=== PATIENT | female | born 1955 | race Caucasian/White ===

== ENCOUNTER → 2019-07-03 18:15 | Outpatient (BNVA) | payer MEDICARE, SELFPAY | PROVIDERS: Family Provider Family Medicine; PCP Family Medicine; Visit Provider Family Medicine | DX: E11.42 Type 2 diabetes mellitus with diabetic polyneuropathy (principal); E03.9 Hypothyroidism, unspecified; I11.0 Hypertensive heart disease with heart failure; I50.9 Heart failure, unspecified; I25.10 Atherosclerotic heart disease of native coronary artery without angina pectoris; M62.838 Other muscle spasm; G89.4 Chronic pain syndrome; G47.00 Insomnia, unspecified; M65.4 Radial styloid tenosynovitis [de Quervain]; G62.9 Polyneuropathy, unspecified; Z79.4 Long term (current) use of insulin; F41.1 Generalized anxiety disorder; K83.8 Other specified diseases of biliary tract | CPT/HCPCS: 80053; 80061; 83036; 83721; 84439; 84443; 84481 ==

== ENCOUNTER → 2019-10-23 09:59 | Outpatient (BNVA) | payer MEDICARE, SELFPAY | PROVIDERS: Family Provider Family Medicine; PCP Family Medicine; Visit Provider Family Medicine | DX: E78.2 Mixed hyperlipidemia (principal); E83.52 Hypercalcemia; E11.42 Type 2 diabetes mellitus with diabetic polyneuropathy; E11.9 Type 2 diabetes mellitus without complications; Z79.4 Long term (current) use of insulin; G89.4 Chronic pain syndrome; F41.1 Generalized anxiety disorder; I10 Essential (primary) hypertension; N95.1 Menopausal and female climacteric states | CPT/HCPCS: 80053; 80061; 83036 ==

== ENCOUNTER → 2020-01-29 08:47 | Outpatient (BNVA) | payer MEDICARE, SELFPAY | PROVIDERS: Family Provider Family Medicine; PCP Family Medicine; Visit Provider Family Medicine | DX: E78.2 Mixed hyperlipidemia (principal); E83.52 Hypercalcemia; E11.42 Type 2 diabetes mellitus with diabetic polyneuropathy; Z79.4 Long term (current) use of insulin; G89.4 Chronic pain syndrome; F41.1 Generalized anxiety disorder; I10 Essential (primary) hypertension; N95.1 Menopausal and female climacteric states; E03.9 Hypothyroidism, unspecified | CPT/HCPCS: 80048; 83036; 84443 ==

== ENCOUNTER → 2020-07-29 00:01 | Outpatient (BNVA) | payer MEDICARE, SELFPAY | PROVIDERS: Family Provider Family Medicine; PCP Family Medicine; Visit Provider Family Medicine | DX: G62.9 Polyneuropathy, unspecified (principal); E11.9 Type 2 diabetes mellitus without complications; I10 Essential (primary) hypertension; E78.2 Mixed hyperlipidemia; J30.9 Allergic rhinitis, unspecified; G89.4 Chronic pain syndrome; F41.1 Generalized anxiety disorder; I50.9 Heart failure, unspecified; E03.9 Hypothyroidism, unspecified; K21.9 Gastro-esophageal reflux disease without esophagitis; M62.838 Other muscle spasm; E11.42 Type 2 diabetes mellitus with diabetic polyneuropathy; Z79.4 Long term (current) use of insulin; J41.0 Simple chronic bronchitis; J30.1 Allergic rhinitis due to pollen; Z71.89 Other specified counseling | CPT/HCPCS: 80053; 83036; 83735; 84443 ==

== ENCOUNTER → 2020-09-16 14:00 | Outpatient (BNVA) | payer MEDICARE, SELFPAY | PROVIDERS: Family Provider Family Medicine; PCP Family Medicine; Referring Provider Family Medicine; Visit Provider Family Medicine | DX: E03.9 Hypothyroidism, unspecified (principal) | CPT/HCPCS: 84443 ==

== ENCOUNTER 2020-10-07 09:37 | Outpatient (RCR) | payer MEDICARE, SELFPAY | END 2020-10-18 23:59 | disposition home or self-care (01) | LOC: SPT 09:37 | PROVIDERS: Family Provider Family Medicine; PCP Family Medicine; Referring Provider Family Medicine; Visit Provider Family Medicine | DX: H81.10 Benign paroxysmal vertigo, unspecified ear (principal) | CPT/HCPCS: 95992; 97162 ==

== ENCOUNTER → 2020-10-21 10:07 | Outpatient (BNVA) | payer MEDICARE, SELFPAY | PROVIDERS: Family Provider Family Medicine; PCP Family Medicine; Visit Provider Family Medicine | DX: E03.9 Hypothyroidism, unspecified (principal); E11.42 Type 2 diabetes mellitus with diabetic polyneuropathy; Z79.4 Long term (current) use of insulin; I11.0 Hypertensive heart disease with heart failure; H81.10 Benign paroxysmal vertigo, unspecified ear; F41.1 Generalized anxiety disorder; G89.4 Chronic pain syndrome; I50.9 Heart failure, unspecified; J44.0 Chronic obstructive pulmonary disease with (acute) lower respiratory infection | CPT/HCPCS: 83036; 84439; 84443; 84481 ==

== ENCOUNTER → 2021-01-20 10:17 | Outpatient (BNVA) | payer MEDICARE, SELFPAY | PROVIDERS: Family Provider Family Medicine; PCP Family Medicine; Visit Provider Family Medicine | DX: I10 Essential (primary) hypertension (principal); K21.9 Gastro-esophageal reflux disease without esophagitis; E03.9 Hypothyroidism, unspecified; I50.9 Heart failure, unspecified; G89.4 Chronic pain syndrome; F41.1 Generalized anxiety disorder; M62.838 Other muscle spasm; M17.0 Bilateral primary osteoarthritis of knee; E11.42 Type 2 diabetes mellitus with diabetic polyneuropathy; Z79.4 Long term (current) use of insulin; J41.0 Simple chronic bronchitis; I25.10 Atherosclerotic heart disease of native coronary artery without angina pectoris | CPT/HCPCS: 80053; 80061; 83036; 84443; 85025 ==

== ENCOUNTER → 2021-04-21 10:45 | Outpatient (BNVA) | payer MEDICARE, SELFPAY | PROVIDERS: Family Provider Family Medicine; PCP Family Medicine; Visit Provider Family Medicine | DX: E11.42 Type 2 diabetes mellitus with diabetic polyneuropathy (principal); D72.829 Elevated white blood cell count, unspecified; D72.825 Bandemia; G89.4 Chronic pain syndrome; Z79.4 Long term (current) use of insulin | CPT/HCPCS: 83036; 85007; 85027 ==

== ENCOUNTER 2021-06-16 11:25 | Outpatient (CLI) | payer MEDICARE, SELFPAY ==
[2021-06-16 12:15] LABS: Basophils # 0.1 10^3/uL (0.0-0.1); Basophils % 0.9 %; Eosinophils # 0.4 10^3/uL (0.0-0.8); Eosinophils % 2.6 %; Hematocrit 48.6 % (37.0-47.0); Hemoglobin 16.1 g/dL (11.5-15.3); Lymphocytes # 4.4 10^3/uL (0.8-4.8); Lymphocytes % 28.7 %; Mean Corpuscular HGB Conc 33.1 g/dL (30.0-36.0); Mean Corpuscular Hemoglobin 29.9 pg (28.0-34.0); Mean Corpuscular Volume 90.2 fl (81-99); Mean Platelet Volume 9.8 fL (7.4-10.4); Monocytes # 1.2 10^3/uL (0.2-0.9); Monocytes % 8.2 %; Neutrophils # 9.01 10^3/uL (1.8-7.7); Neutrophils % 59.2 %; Nucleated Red Blood Cells % 0 %; Platelet Count 282 10^3/cmm (130-400); Red Blood Count 5.39 10^6/uL (4.1-5.3); White Blood Count 15.2 10^3/uL (4.0-10.0)
--- NOTE | 2021-06-16 15:07 | ONC FU_ITS ---
Dr. Paniagua follow up note Patient: Dee Barros Unit #: [id number]: 1955 Dicatated By: Cesar Paniagua M.D.Date of Visit:Jun 16, 2021 Onc Med Follow-up/Prog Note History of Present Illness: Ms. Dee Barros, is a 65-year-old female with a history of mild leukocytosis, she used to use steroid inhalers for COPD on regular basis and she was told it could be due to that and she stopped using Symbicort on regular basis and changed to as needed. and now during her routine follow-up on April 21, 2021 she underwent follow-up lab work-up and her CBC showed white blood count 13.3 hemoglobin 15.2 hematocrit 48.9 platelets 312,000 with mild neutrophilia, Patient has history of COPD, and still smoke about pack a day for the last 45 years, as per patient in the past, sleep study was recommended to rule out possibility of sleep apnea but she did not follow through. Patient denies any sinus related symptoms, denies any dysuria or hematuria, denies any fever chills, denies any sore throat, denies any hemoptysis or hematemesis, denies any recurrent fever, denies any night sweats, denies any weight loss, denies any steroids except Symbicort inhaler about 3 weeks ago. Denies any headaches blurred vision double vision, denies any confusion, denies any chest pain or fullness. Medications: Albuterol Sulfate ((2.5 mg/3ml) 0.083%) Nebulization solution Inhalation q 6 hours, Albuterol Sulfate HFA 2 Puff(s) (of 108 (90 base) mcg/act) Aerosol, solution Inhalation q 6 hours PRN, Aspirin 1 Tablet (of 81 mg) Tablet, enteric coated Oral daily, Atorvastatin Calcium 1 Tablet Oral at bedtime, B-Complex/B-12 (1200 mcg) Liquid Sublingual daily PRN, Cetirizine HCl 1 Tablet (of 10 mg) Oral daily, Cholecalciferol 1 Capsule Oral daily, cloNIDine HCl 1 Tablet Oral b.i.d., Cyclobenzaprine HCl 1 Tablet (of 10 mg) Oral daily, DULoxetine HCl 1 Capsule (of 40 mg) Capsule Delayed Release Particles Oral daily, Gabapentin 1 Capsule (of 400 mg) Oral b.i.d., Insulin Detemir 65 Unit(s) (of 100 Units/mL) Subcutaneous daily, Levothyroxine Sodium 1 Tablet Oral daily, Lisinopril-hydroCHLOROthiazide 1 Tablet (of 20-12.5 mg) Oral daily, Melatonin 1 Tablet (of 5 mg) Oral daily PRN, Metoprolol Tartrate 1 Tablet Oral b.i.d., Nitroglycerin 1 Tablet (of 0.4 mg) Tablet, sublingual Sublingual q 5 minutes PRN, Omeprazole 1 Capsule (of 40 mg) Capsule Delayed Release Oral b.i.d. Allergies: Codeine Sulfate and Pregabalin. Review of Systems: Review of Systems is not available for this patient. Vital Signs: Performed on Jun 16, 2021 14:06 Height - 62 in Weight - 190.6 lbs (HIGH) BSA - 1.87 sq.m BMI - 34.86 (HIGH) Temperature - 96.4 F (LOW) Pulse - 91 /min Respiration - 18 /min BP - 143/81 mm(hg) (HIGH) O2 Sat - 94 % (LOW) Pain - 9 Fatigue - 7 Performance Status: 0 - Fully active, able to carry on all predisease activities without restrictions. (ECOG) Physical Examination: ENMT - No mouth sores, no thrush, no jaundice, Respiratory - Poor air entry, mild wheezing, Cardiovascular - Regular rate and rhythm of heart, Abdomen - Soft, bowel sounds present, Extremities - No visible edema. Lab/Imaging: Most recent lab results are not available for this patient. Impression: Isolated, mild leukocytosis/neutrophilia with normal hemoglobin and platelets per labs done on April 21, 2021, which showed white blood count 13.3 hemoglobin 15.2 hematocrit 48.9 platelets 312,000 COPD, on Symbicort inhaler, now on as-needed basis Arthritis Stress/anxiety Hypertension Hypothyroidism Plan: Discussed with patient regarding her labs from today showed white blood count 15.2 hemoglobin 16.1 hematocrit 48.6 platelets 282,000, neutrophils 59.2%, lymphocyte 28.7%, monocyte 8.2% Clinically, patient doing well with no new signs suggestive of acute infection or inflammation, her repeat CBC done today shows persistent isolated mild leukocytosis/neutrophilia and mildly elevated hemoglobin/hematocrit. Etiology of her isolated leukocytosis could be multifactorial including chronic smoking or smoking related upper respiratory inflammation, other possibility could be underlying sleep apnea, or chronic inflammation or myeloproliferative disorder. Patient was advised to quit smoking, was offered any assistance she may need and also advised to not to use Symbicort until her next visit in a month with CBC, in the meantime we will consider whole blood flow cytometry As far as mild polycythemia is concerned, probably reactive, chronic smoking, underlying COPD and possibility of sleep apnea, will suggest PMD to consider sleep study, if sleep apnea is confirmed, she may benefit from CPAP machine. That may help her leukocytosis too . She will return to clinic in 1 month with CBC and with whole blood flow cytometry Signed By: Cesar Paniagua M.D. <<Signature on File>>
[2021-06-24 07:25] LABS: Miscellaneous Test See Scanned Lab Rpt
== END 2021-06-16 11:26 | disposition home or self-care (01) ==
LOC: ONCMED 11:31
PROVIDERS: PCP Family Medicine; Visit Provider Internal Medicine Hematology & Oncology
DX: J44.9 Chronic obstructive pulmonary disease, unspecified (principal); M19.90 Unspecified osteoarthritis, unspecified site; F41.9 Anxiety disorder, unspecified; I10 Essential (primary) hypertension; E05.90 Thyrotoxicosis, unspecified without thyrotoxic crisis or storm; F17.210 Nicotine dependence, cigarettes, uncomplicated
CPT/HCPCS: 36415; 85025; 88184; 88185; 99204

== ENCOUNTER 2021-07-28 12:24 | Outpatient (CLI) | payer MEDICARE, SELFPAY ==
[2021-07-28 12:49] LABS: Basophils # 0.1 10^3/uL (0.0-0.1); Basophils % 0.6 %; Eosinophils # 0.2 10^3/uL (0.0-0.8); Hematocrit 47.3 % (37.0-47.0); Hemoglobin 15.2 g/dL (11.5-15.3); Mean Corpuscular HGB Conc 32.1 g/dL (30.0-36.0); Mean Corpuscular Hemoglobin 29.4 pg (28.0-34.0); Mean Corpuscular Volume 91.5 fl (81-99); Mean Platelet Volume 9.9 fL (7.4-10.4); Monocytes # 1.2 10^3/uL (0.2-0.9); Monocytes % 9.9 %; Neutrophils # 6.13 10^3/uL (1.8-7.7); Neutrophils % 52.8 %; Nucleated Red Blood Cells % 0 %; Platelet Count 257 10^3/cmm (130-400); Red Blood Count 5.17 10^6/uL (4.1-5.3); Red Cell Distribution Width 13.2 % (12.1-15.1); White Blood Count 11.6 10^3/uL (4.0-10.0)
--- NOTE | 2021-07-28 17:01 | ONC FU_ITS ---
Dr. Paniagua follow up note Patient: Dee Barros Unit #: [id number]: 1955 Dicatated By: Cesar Paniagua M.D.Date of Visit:Jul 28, 2021 Onc Med Follow-up/Prog Note History of Present Illness: Ms. Dee Barros, is a 65-year-old female with a history of mild leukocytosis, she used to use steroid inhalers for COPD on regular basis and she was told it could be due to that and she stopped using Symbicort on regular basis and changed to as needed. and now during her routine follow-up on April 21, 2021 she underwent follow-up lab work-up and her CBC showed white blood count 13.3 hemoglobin 15.2 hematocrit 48.9 platelets 312,000 with mild neutrophilia, Patient has history of COPD, and still smoke about pack a day for the last 45 years, as per patient in the past, sleep study was recommended to rule out possibility of sleep apnea but she did not follow through. Patient denies any sinus related symptoms, denies any dysuria or hematuria, denies any fever chills, denies any sore throat, denies any hemoptysis or hematemesis, denies any recurrent fever, denies any night sweats, denies any weight loss, denies any steroids except Symbicort inhaler about 3 weeks ago. Denies any headaches blurred vision double vision, denies any confusion, denies any chest pain or fullness. Whole blood flow cytometric done on June 16, 2021 showed no aberrant myeloid or lymphoid population detected Came for follow-up, denies any specific complaints, no fever chills, no nausea or vomiting, no diarrhea or constipation, no melena or hematochezia, no night sweats, no dysuria or hematuria, no sore throat, no sinus related symptoms. Patient still smoke about a pack a day. Medications: Albuterol Sulfate ((2.5 mg/3ml) 0.083%) Nebulization solution Inhalation q 6 hours, Albuterol Sulfate HFA 2 Puff(s) (of 108 (90 base) mcg/act) Aerosol, solution Inhalation q 6 hours PRN, Aspirin 1 Tablet (of 81 mg) Tablet, enteric coated Oral daily, Atorvastatin Calcium 1 Tablet Oral at bedtime, B-Complex/B-12 (1200 mcg) Liquid Sublingual daily PRN, Cetirizine HCl 1 Tablet (of 10 mg) Oral daily, Cholecalciferol 1 Capsule Oral daily, cloNIDine HCl 1 Tablet Oral b.i.d., Cyclobenzaprine HCl 1 Tablet (of 10 mg) Oral daily, DULoxetine HCl 1 Capsule (of 40 mg) Capsule Delayed Release Particles Oral daily, Gabapentin 1 Capsule (of 400 mg) Oral b.i.d., Insulin Detemir 65 Unit(s) (of 100 Units/mL) Subcutaneous daily, Levothyroxine Sodium 1 Tablet Oral daily, Lisinopril-hydroCHLOROthiazide 1 Tablet (of 20-12.5 mg) Oral daily, Melatonin 1 Tablet (of 5 mg) Oral daily PRN, Metoprolol Tartrate 1 Tablet Oral b.i.d., Nitroglycerin 1 Tablet (of 0.4 mg) Tablet, sublingual Sublingual q 5 minutes PRN, Omeprazole 1 Capsule (of 40 mg) Capsule Delayed Release Oral b.i.d. Allergies: Codeine Sulfate and Pregabalin. Review of Systems: Review of Systems is not available for this patient. Vital Signs: Performed on Jul 28, 2021 15:14 Height - 62.00 in Weight - 186.0 lbs (LOW) BSA - 1.85 sq.m BMI - 34.02 (HIGH) Temperature - 98.1 F (LOW) Pulse - 87 /min Respiration - 16 /min BP - 144/85 mm(hg) (HIGH) O2 Sat - 95 % (LOW) Pain - 7 Fatigue - 9 Performance Status: 1 - No physically strenuous activity, but ambulatory and able to carry out light or sedentary work (e.g. office work, light house work). (ECOG) Physical Examination: ENMT - No mouth sores, no thrush, no jaundice, Respiratory - Poor air entry otherwise clear, Cardiovascular - Regular rate and rhythm of heart, Abdomen - Soft, bowel sounds present, Extremities - No visible edema. Lab/Imaging: Most recent lab results are not available for this patient. Impression: Isolated, mild leukocytosis/neutrophilia with normal hemoglobin and platelets per labs done on April 21, 2021, which showed white blood count 13.3 hemoglobin 15.2 hematocrit 48.9 platelets 312,000, Etiology most likely reactive as whole blood flow cytometry done on June 16, 2021 showed no aberrant myeloid or lymphoid population detected so fluctuating isolated mild leukocytosis could be due to chronic smoking, underlying subclinical bronchitis, underlying sleep apnea, COPD, early myeloproliferative disorder but less likely. COPD, on Symbicort inhaler, now on as-needed basis Arthritis Stress/anxiety Hypertension Hypothyroidism Plan: Discussed with patient regarding her labs white blood count 11.6 thousand compared to 15.2 thousand on June 16, 2021, hemoglobin 15.2 g hematocrit 47.3 platelets 267,000 Whole blood flow cytometry done on June 16, 2021 showed no aberrant lymphoid or myeloid cells seen Clinically, patient doing well with no new signs symptoms her follow-up CBC shows improvement in her white blood count and the whole blood flow cytometry showed no aberrant lymphoid or myeloid cell, her isolated leukocytosis could be reactive due to her chronic smoking, smoking related complication like chronic bronchitis and underlying COPD or sleep apnea. Underlying early myeloproliferative disorder cannot be ruled out entirely but will monitor she will return to clinic in 3 months with CBC. Patient was advised to quit smoking was offered any assistance she may need. Signed By: Cesar Paniagua M.D. <<Signature on File>>
== END 2021-07-28 12:25 | disposition home or self-care (01) ==
LOC: ONCMED 12:27
PROVIDERS: PCP Family Medicine; Visit Provider Internal Medicine Hematology & Oncology
DX: D72.829 Elevated white blood cell count, unspecified (principal); D72.0 Genetic anomalies of leukocytes; J44.9 Chronic obstructive pulmonary disease, unspecified; M19.90 Unspecified osteoarthritis, unspecified site; F41.9 Anxiety disorder, unspecified; I10 Essential (primary) hypertension; E03.9 Hypothyroidism, unspecified; F17.210 Nicotine dependence, cigarettes, uncomplicated; Z71.6 Tobacco abuse counseling
CPT/HCPCS: 36415; 85025; 99214

== ENCOUNTER → 2021-08-04 15:26 | Outpatient (BNVA) | payer MEDICARE, SELFPAY | PROVIDERS: PCP Family Medicine; Visit Provider Family Medicine | DX: E03.9 Hypothyroidism, unspecified (principal); E78.2 Mixed hyperlipidemia; E11.42 Type 2 diabetes mellitus with diabetic polyneuropathy; Z79.4 Long term (current) use of insulin; I10 Essential (primary) hypertension | CPT/HCPCS: 80053; 80061; 83036; 83721; 84443 ==

== ENCOUNTER → 2021-11-03 10:33 | Outpatient (BNVA) | payer MEDICARE, SELFPAY | PROVIDERS: PCP Family Medicine; Visit Provider Family Medicine | DX: E11.42 Type 2 diabetes mellitus with diabetic polyneuropathy (principal); Z79.4 Long term (current) use of insulin; E03.9 Hypothyroidism, unspecified; I10 Essential (primary) hypertension; E78.2 Mixed hyperlipidemia | CPT/HCPCS: 80048; 83036; 84439; 84443; 84481 ==

== ENCOUNTER → 2022-01-28 11:02 | Outpatient (BNVA) | payer MEDICARE, SELFPAY | PROVIDERS: PCP Family Medicine; Visit Provider Family Medicine | DX: M62.838 Other muscle spasm (principal); E11.9 Type 2 diabetes mellitus without complications; E03.9 Hypothyroidism, unspecified; E11.42 Type 2 diabetes mellitus with diabetic polyneuropathy; Z79.4 Long term (current) use of insulin; I10 Essential (primary) hypertension; R53.83 Other fatigue; Z23 Encounter for immunization | CPT/HCPCS: 80048; 83036; 83540; 84443; 85025 ==

== ENCOUNTER → 2022-03-31 09:08 | Outpatient (BNVA) | payer MEDICARE, SELFPAY | PROVIDERS: PCP Family Medicine; Visit Provider Family Medicine | DX: G89.4 Chronic pain syndrome (principal); F41.1 Generalized anxiety disorder; G62.9 Polyneuropathy, unspecified; K21.9 Gastro-esophageal reflux disease without esophagitis; I10 Essential (primary) hypertension; E03.9 Hypothyroidism, unspecified; I50.9 Heart failure, unspecified; J30.9 Allergic rhinitis, unspecified; J44.9 Chronic obstructive pulmonary disease, unspecified; E78.2 Mixed hyperlipidemia; J41.0 Simple chronic bronchitis; M79.2 Neuralgia and neuritis, unspecified; Z23 Encounter for immunization | CPT/HCPCS: 72040; 73030 ==

== ENCOUNTER → 2022-04-15 09:01 | Outpatient (BNVA) | payer MEDICARE, SELFPAY | PROVIDERS: PCP Family Medicine; Visit Provider Family Medicine | DX: M54.40 Lumbago with sciatica, unspecified side (principal); M25.551 Pain in right hip; M25.552 Pain in left hip; M17.0 Bilateral primary osteoarthritis of knee; G89.4 Chronic pain syndrome; I50.9 Heart failure, unspecified; Z74.09 Other reduced mobility; Z78.9 Other specified health status | CPT/HCPCS: 72100; 73523 ==

== ENCOUNTER → 2022-04-20 13:13 | Outpatient (BNVA) | payer MEDICARE, SELFPAY | PROVIDERS: PCP Family Medicine; Visit Provider Surgery | DX: K21.9 Gastro-esophageal reflux disease without esophagitis (principal); K62.5 Hemorrhage of anus and rectum | CPT/HCPCS: 99203 ==

== ENCOUNTER → 2022-04-27 09:25 | Outpatient (BNVA) | payer MEDICARE, SELFPAY | PROVIDERS: PCP Family Medicine; Visit Provider Family Medicine | DX: E11.42 Type 2 diabetes mellitus with diabetic polyneuropathy (principal); Z79.4 Long term (current) use of insulin; I10 Essential (primary) hypertension; H91.93 Unspecified hearing loss, bilateral; M54.40 Lumbago with sciatica, unspecified side; G89.4 Chronic pain syndrome; K62.5 Hemorrhage of anus and rectum; K21.9 Gastro-esophageal reflux disease without esophagitis | CPT/HCPCS: 80053; 83036; 85025 ==

== ENCOUNTER → 2022-05-18 09:46 | Outpatient (BNVA) | payer MEDICARE, SELFPAY | PROVIDERS: PCP Family Medicine; Visit Provider Anesthesiology Pain Medicine | DX: M47.816 Spondylosis without myelopathy or radiculopathy, lumbar region (principal); M51.16 Intervertebral disc disorders with radiculopathy, lumbar region; M79.604 Pain in right leg; M79.605 Pain in left leg; F17.210 Nicotine dependence, cigarettes, uncomplicated | CPT/HCPCS: 99204 ==

== ENCOUNTER 2022-06-19 08:49 | Day surgery (SDC) | payer MEDICARE, SELFPAY ==
[2022-06-16 12:22] VITALS: BMI 33.3
[2022-06-19 09:14] VITALS: BP 144/99; PULSE 65; RESP 20; TEMP 36.2; O2SAT 93
[2022-06-19] MEDS: sodium chloride 0.9% 1,000 ML 30 ML IV (09:19)
[2022-06-19 09:24] LABS: Glucose Point of Care 170 mg/dL (70-110)
--- NOTE | 2022-06-19 09:46 | ANES.PREANE2 ---
Pre-Anesthetic Assessment Height/Weight: Height 1.57 m Weight 82.554 kg Temp Pulse Resp BP Pulse Ox O2 Del Method 97.2 F L 65 20 H 144/99 93 06/19/22 09:14 06/19/22 09:14 06/19/22 09:14 06/19/22 09:14 06/19/22 09:14 06/19/22 09:14 Preop Diagnosis: blood per rectum Operation Date: 06/19/22 10:00 Proposed Procedures p [id number] egd, [id number] colon K62.5,K21.9(Not Applicable) - Chapin Blake DO s Colonoscopy(Not Applicable) - Chapin Blake DO Familial anesthetic complications: hard to wake up Was Beta Shreyas taken within 24 hours: Yes Was Clonidine taken within 24 hours: N/A Last intake: Intake Last Liquid Date 06/18/22 Last Liquid Time 22:00 Last Solid Date 06/17/22 Last Solid Time 19:30 Social Tobacco and No alcohol 1 pack(s) per day Exam alert, oriented x 3, clear to auscultation bilaterally and regular rate & rhythm Airway Submandibular: within normal limits Cervical ROM: within normal limits Mallampati: Class I Dentition: false Pulmonary Asthma, Chronic Obstructive Pulmonary Disease, Cough and Sleep Apnea CV/HEM Hypertension None reported Hepatic None reported GI Gastroesophageal Reflux Disease Metabolic Diabetes Mellitus, Hyperlipidemia and Thyroid Disease Musc/skel Lower Back Pain, Osteoarthritis/DJD and Weakness (Right sided) Neuropsych Anxiety, Bipolar, Depression and Headache Anesthetic Plan ASA status: 3 Anesthesia: MAC Risk of > 500 ml blood loss (7ml/kg in children): No Medications/Allergies Home Medications Medication Instructions Recorded Confirmed Last Taken Type albuterol sulfate 2.5 mg/3 mL 2.5 mg inhalation Q6H PRN 06/23/19 06/16/22 06/13/22 History (0.083 %) solution for nebulization Shortness Of Breath aspirin 81 mg tablet,delayed 81 mg PO DAILY 06/23/19 06/16/22 06/16/22 History release cholecalciferol (vitamin D3) 25 125 mcg PO DIRECTED 06/23/19 06/16/22 06/18/22 History mcg (1,000 unit) tablet melatonin 5 mg capsule 5 mg PO DAILY PRN Sleep 06/23/19 06/16/22 06/18/22 History nitroglycerin 0.4 mg sublingual 0.4 mg sublingual Q5M PRN Chest 06/23/19 06/16/22 Unknown History tablet (Nitrostat) Pain vitamin B complex-vitamin B12 1 drp sublingual DAILY PRN 06/23/19 06/16/22 Unknown History 1,200 mcg/mL sublingual drops exhaustion krill oil 500 mg capsule 500 mg PO DAILY 11/03/21 06/16/22 06/16/22 History tizanidine 4 mg tablet 4 mg PO BID muscle spasticity 90 01/28/22 06/16/22 06/18/22 Rx days #180 tabs cetirizine 10 mg capsule 10 mg PO DAILY 90 days #90 caps 03/31/22 06/16/22 06/18/22 Rx duloxetine 20 mg capsule,delayed 40 mg PO DAILY 90 days #180 caps 03/31/22 06/16/22 06/19/22 05:30 Rx release insulin detemir U-100 100 unit/mL 75 unit (0.75 mL) SUBCUT DAILY 90 04/27/22 06/16/22 06/17/22 Rx (3 mL) subcutaneous pen (Levemir days #69 mL FlexTouch U-100 Insulin) Marijuana 05/18/22 05/18/22 Unknown History pen needle, diabetic 31 gauge x #100 ea 05/20/22 Unknown Rx 5/16 (Comfort EZ Pen [place]) blood sugar diagnostic (OneTouch #100 ea 05/27/22 Unknown Rx Verio test strips) albuterol sulfate 90 mcg/actuation 2 puff inhalation Q6H PRN 06/16/22 06/16/22 06/19/22 06:00 History aerosol inhaler Shortness Of Breath atorvastatin 20 mg tablet 20 mg PO QPM 06/16/22 06/16/22 06/18/22 History budesonide-formoterol HFA 160 2 puff inhalation BID 06/16/22 06/16/22 06/14/22 History mcg-4.5 mcg/actuation aerosol inhaler (Symbicort) clonidine HCl 0.2 mg tablet 0.2 mg PO BID 06/16/22 06/16/22 06/18/22 History furosemide 20 mg tablet 20 mg PO QAM 12/27/22 12/27/22 12/28/22 History gabapentin 400 mg capsule 400 mg PO BID 06/16/22 06/16/22 06/17/22 History levothyroxine 150 mcg tablet 150 mcg PO DAILY 06/16/22 06/16/22 06/19/22 05:30 History lisinopril 20 1 tab PO DAILY 06/16/22 06/16/22 06/18/22 History mg-hydrochlorothiazide 25 mg tablet metoprolol tartrate 25 mg tablet 25 mg PO BID 06/16/22 06/16/22 06/19/22 05:30 History Tylenol 1,000 mg PO TID 06/19/22 06/19/22 06/19/22 05:30 History Allergies Allergy/AdvReac Type Severity Reaction Status Date / Time codeine Allergy Unknown Verified 06/16/22 12:13 pregabalin [From Lyrica] Allergy Unknown Verified 06/16/22 12:13 Current Medications Generic Name Dose Route Start Last Admin Trade Name Freq PRN Reason Stop Dose Admin Sodium Chloride 1,000 mls @ 30 mls/hr 06/19/22 09:00 06/19/22 09:19 Sodium Chloride 0.9% IV 06/20/22 08:59 30 mls/hr .Q24H JONAH Administration PFSH Anesthesia Medical History Allergic rhinitis Benign essential hypertension CHF (congestive heart failure) Chronic pain syndrome COPD (chronic obstructive pulmonary disease) Coronary artery disease Diabetes Elevated white blood cell count, unspecified PILAR (generalized anxiety disorder) GERD (gastroesophageal reflux disease) Hyperlipidemia Hypothyroidism Insomnia Intrahepatic bile duct dilation Muscle spasm Neuropathy Other elevated white blood cell count Primary osteoarthritis of both knees Surgical History History of cholecystectomy History of hysterectomy History of tubal ligation Family History Father Hypertension Myocardial infarction Cancer Colon Brother Hypertension Diabetes Mother Hypertension Myocardial infarction Cancer Breast Sister Hypertension Brother Myocardial infarction Cancer Colon Family/Other Cancer Aunt 2x Breast Other Stroke Social History Smoking and tobacco status: current every day smoker cigarettes [ Other cigarette details: 4 per week] Quit status (tobacco): not considering quitting Second hand smoke exposure: Yes Smoking risk assessment/counseling performed?: No Alcohol intake: never Desire information about alcohol rehabilitation?: No Counseling given: No Desire information about substance/drug rehabilitation?: No Counseling given: No Sexually active: No Current gender identity: Female Female Reproductive History Spontaneous abortions: No Data Anesthesia Cardiac Studies: No Data to Display
--- NOTE | 2022-06-19 09:52 | P.HP_ITS ---
Providers/Chief Complaint Primary Care Provider: Nataliia Murphy MD Chief Complaint: Haemorrhage of anus and rectum History of Present Illness Dee Barros is a 66 year old female here for EGD and colonoscopy Medications/Allergies Home Medications Medication Instructions Recorded Confirmed Last Taken Type albuterol sulfate 2.5 mg/3 mL 2.5 mg inhalation Q6H PRN 06/23/19 06/16/22 06/13/22 History (0.083 %) solution for nebulization Shortness Of Breath aspirin 81 mg tablet,delayed 81 mg PO DAILY 06/23/19 06/16/22 06/16/22 History release cholecalciferol (vitamin D3) 25 125 mcg PO DIRECTED 06/23/19 06/16/22 06/18/22 History mcg (1,000 unit) tablet melatonin 5 mg capsule 5 mg PO DAILY PRN Sleep 06/23/19 06/16/22 06/18/22 Hi story nitroglycerin 0.4 mg sublingual 0.4 mg sublingual Q5M PRN Chest 06/23/19 06/16/22 Unknown History tablet (Nitrostat) Pain vitamin B complex-vitamin B12 1 drp sublingual DAILY PRN 06/23/19 06/16/22 Unknown History 1,200 mcg/mL sublingual drops exhaustion krill oil 500 mg capsule 500 mg PO DAILY 11/03/21 06/16/22 06/16/22 History tizanidine 4 mg tablet 4 mg PO BID muscle spasticity 90 01/28/22 06/16/22 06/18/22 Rx days #180 tabs cetirizine 10 mg capsule 10 mg PO DAILY 90 days #90 caps 03/31/22 06/16/22 06/18/22 Rx duloxetine 20 mg capsule,delayed 40 mg PO DAILY 90 days #180 caps 03/31/22 06/16/22 06/19/22 05:30 Rx release insulin detemir U-100 100 unit/mL 75 unit (0.75 mL) SUBCUT DAILY 90 04/27/22 06/16/22 06/17/22 Rx (3 mL) subcutaneous pen (Levemir days #69 mL FlexTouch U-100 Insulin) Marijuana 05/18/22 05/18/22 Unknown History pen needle, diabetic 31 gauge x #100 ea 05/20/22 Unknown Rx 11/03 (Comfort EZ Pen [place]) blood sugar diagnostic (OneTouch #100 ea 05/27/22 Unknown Rx Verio test strips) albuterol sulfate 90 mcg/actuation 2 puff inhalation Q6H PRN 06/16/22 06/16/22 06/19/22 06:00 History aerosol inhaler Shortness Of Breath atorvastatin 20 mg tablet 20 mg PO QPM 06/16/22 06/16/22 06/18/22 History budesonide-formoterol HFA 160 2 puff inhalation BID 06/16/22 06/16/22 06/14/22 History mcg-4.5 mcg/actuation aerosol inhaler (Symbicort) clonidine HCl 0.2 mg tablet 0.2 mg PO BID 06/16/22 06/16/22 06/18/22 History furosemide 20 mg tablet 20 mg PO QAM 06/16/22 06/16/22 06/17/22 History gabapentin 400 mg capsule 400 mg PO BID 06/16/22 06/16/22 06/17/22 History levothyroxine 150 mcg tablet 150 mcg PO DAILY 06/16/22 06/16/22 06/19/22 05:30 History lisinopril 20 1 tab PO DAILY 06/16/22 06/16/22 06/18/22 History mg-hydrochlorothiazide 25 mg tablet metoprolol tartrate 25 mg tablet 25 mg PO BID 06/16/22 06/16/22 06/19/22 05:30 History Tylenol 1,000 mg PO TID 06/19/22 06/19/22 06/19/22 05:30 History Allergies Allergy/AdvReac Type Severity Reaction Status Date / Time codeine Allergy Unknown Verified 06/16/22 12:13 pregabalin [From Lyrica] Allergy Unknown Verified 06/16/22 12:13 PFSH Acute PFSH: Medical History Allergic rhinitis Benign essential hypertension CHF (congestive heart failure) Chronic pain syndrome COPD (chronic obstructive pulmonary disease) Coronary artery disease Diabetes Elevated white blood cell count, unspecified PILAR (generalized anxiety disorder) GERD (gastroesophageal reflux disease) Hyperlipidemia Hypothyroidism Insomnia Intrahepatic bile duct dilation Muscle spasm Neuropathy Other elevated white blood cell count Primary osteoarthritis of both knees Surgical History History of cholecystectomy History of hysterectomy History of tubal ligation Family History Father Hypertension Myocardial infarction Cancer Colon Brother Hypertension Diabetes Mother Hypertension Myocardial infarction Cancer Breast Sister Hypertension Brother Myocardial infarction Cancer Colon Family/Other Cancer Aunt 2x Breast Other Stroke Social History Smoking and tobacco status: current every day smoker cigarettes [ Other cigarette details: 4 per week] Quit status (tobacco): not considering quitting Second hand smoke exposure: Yes Smoking risk assessment/counseling performed?: No Alcohol intake: never Desire information about alcohol rehabilitation?: No Counseling given: No Desire information about substance/drug rehabilitation?: No Counseling given: No Sexually active: No Current gender identity: Female Female Reproductive History: Spontaneous abortions: No Vitals/I&O/Wt Last Vital Signs Temp 97.2 F L 06/19/22 09:14 Pulse 65 06/19/22 09:14 Resp 20 H 06/19/22 09:14 BP 144/99 06/19/22 09:14 Pulse Ox 93 06/19/22 09:14 O2 Del Method 06/19/22 09:14 A&P Assessment and plan (1) GERD (gastroesophageal reflux disease): Qualifiers: Esophagitis presence: without esophagitis Qualified Code(s): K21.9 - Gastro-esophageal reflux disease without esophagitis (2) Bright red blood per rectum: Plan EGD and colonoscopy Attestations Medical Necessity Statement*: Home Coding Level of Care Code Acute Group Home Manager for [facility] Fwd Diagnoses GERD (gastroesophageal reflux disease) K21.9 Esophagitis presence: without esophagitis Bright red blood per rectum K62.5
[2022-06-19 10:45] VITALS: BP 146/83; PULSE 81; RESP 18; TEMP 36.6; O2SAT 92
--- NOTE | 2022-06-19 10:49 | ANE.PACU2 ---
Inpatient post-anesthesia follow up: Airway intact: Yes Vital signs: Temperature 97.2 F Pulse Rate 65 Respiratory Rate 20 Blood Pressure 144/99 Pulse Oximetry 93 Oxygen Delivery Me thod Room Air Oxygen Flow Rate Fraction of Inspir ed Oxygen Hydration adequate: Yes Nausea and vomiting: No Pain level: 1 Mental status: Baseline
[2022-06-19 10:51] VITALS: BP 141/93; PULSE 78; RESP 16; O2SAT 94
[2022-06-19 10:59] VITALS: BP 163/89; PULSE 64; RESP 16; O2SAT 96
[2022-06-19 11:05] VITALS: BP 158/89; PULSE 65; RESP 18; O2SAT 95
== END 2022-06-19 11:20 | disposition home or self-care (01) ==
PROVIDERS: PCP Family Medicine; Visit Provider Surgery
PROC: 0DJ08ZZ Inspection of Upper Intestinal Tract, Via Natural or Artificial Opening Endoscopic (ICD-10-PCS; CPT 43235; principal; 2022-06-19 10:00)
PROC: 0DJD8ZZ Inspection of Lower Intestinal Tract, Via Natural or Artificial Opening Endoscopic (ICD-10-PCS; CPT 45378; 2022-06-19 10:00)
DX: K62.5 Hemorrhage of anus and rectum (principal); K21.9 Gastro-esophageal reflux disease without esophagitis; K64.8 Other hemorrhoids; K29.50 Unspecified chronic gastritis without bleeding; B96.81 Helicobacter pylori [H. pylori] as the cause of diseases classified elsewhere; J44.9 Chronic obstructive pulmonary disease, unspecified; G47.30 Sleep apnea, unspecified; E11.9 Type 2 diabetes mellitus without complications; Z79.82 Long term (current) use of aspirin; I11.0 Hypertensive heart disease with heart failure; I50.9 Heart failure, unspecified; I25.10 Atherosclerotic heart disease of native coronary artery without angina pectoris; E03.9 Hypothyroidism, unspecified; E78.5 Hyperlipidemia, unspecified; F17.210 Nicotine dependence, cigarettes, uncomplicated
CPT/HCPCS: 36416; 43239; 45378; 82962; 88305; 88342; J2704; J7030

== ENCOUNTER → 2022-07-02 15:59 | Outpatient (BNVA) | payer MEDICARE, SELFPAY | PROVIDERS: PCP Family Medicine; Visit Provider Surgery | DX: Z09 Encounter for follow-up examination after completed treatment for conditions other than malignant neoplasm (principal); K29.70 Gastritis, unspecified, without bleeding; B96.81 Helicobacter pylori [H. pylori] as the cause of diseases classified elsewhere; K64.8 Other hemorrhoids | CPT/HCPCS: 99212 ==

== ENCOUNTER → 2022-07-13 09:06 | Outpatient (BNVA) | payer MEDICARE, SELFPAY | PROVIDERS: PCP Family Medicine; Visit Provider Family Medicine | DX: I10 Essential (primary) hypertension (principal); E11.42 Type 2 diabetes mellitus with diabetic polyneuropathy; E03.9 Hypothyroidism, unspecified; E78.2 Mixed hyperlipidemia; E11.9 Type 2 diabetes mellitus without complications; Z79.4 Long term (current) use of insulin; M54.40 Lumbago with sciatica, unspecified side; G89.4 Chronic pain syndrome; K21.9 Gastro-esophageal reflux disease without esophagitis; K29.70 Gastritis, unspecified, without bleeding; B96.81 Helicobacter pylori [H. pylori] as the cause of diseases classified elsewhere; M62.838 Other muscle spasm | CPT/HCPCS: 80048; 80061; 83036; 84443 ==

== ENCOUNTER 2022-08-26 16:26 | Emergency (ER) | payer MEDICARE, SELFPAY ==
[2022-08-26 16:39] VITALS: BP 143/94; PULSE 85; RESP 18; TEMP 36.4; O2SAT 93; BMI 34.0
--- NOTE | 2022-08-26 17:20 | CTR_ITS ---
PROCEDURE INFORMATION: Exam: CT Head Without Contrast Exam date and time: 08/26/2022 5:28 PM Age: 66 years old Clinical indication: Injury or trauma; Fall; Blunt trauma (contusions or hematomas); Additional info: Fall, head injury TECHNIQUE: Imaging protocol: Computed tomography of the head without contrast. Radiation optimization: All CT scans at this facility use at least one of these dose optimization techniques: automated exposure control; mA and/or kV adjustment per patient size (includes targeted exams where dose is matched to clinical indication); or iterative reconstruction. REPORTING DATA: Count of CT and Cardiac NM exams in prior 12 months: This patient has received 0 known CTs and 0 known cardiac nuclear medicine studies in the 12 months prior to the current study. COMPARISON: CT head wo con* [id number] 03/15/2016 1:38 PM RADIATION DOSE METRICS: Total DLP (mGy-cm): 1126.84 FINDINGS: Brain: No acute infarct. No hemorrhage. Stable involutional changes of the brain. No mass effect. Cerebral ventricles: No ventriculomegaly. Paranasal sinuses: Visualized sinuses are unremarkable. No fluid levels. Mastoid air cells: Visualized mastoid air cells are well aerated. Bones/joints: Unremarkable. No acute fracture. Soft tissues: Unremarkable. CT/CT head wo con* [id number] IMPRESSION: No acute intracranial abnormality.
--- NOTE | 2022-08-26 17:20 | XRR_ITS ---
PROCEDURE INFORMATION: Exam: XR Right Hip Exam date and time: 08/26/2022 5:34 PM Age: 66 years old Clinical indication: Injury or trauma; Fall; Blunt trauma (contusions or hematomas); Right; Hip; Additional info: Fall, include pelvis x today. PT C/O severe lower back pain. Difficulty ambulating TECHNIQUE: Imaging protocol: Radiologic exam of the right hip. Views: 1 view hip with pelvis when performed. COMPARISON: CR XR hip BI m 5V wo/w pel* [id number] 04/15/2022 9:10 AM FINDINGS: Bones/joints: Mild bilateral hip joint space narrowing is unchanged. Pelvis is intact. No acute osseous injury. Anatomic alignment. Soft tissues: Unremarkable. XR/XR hip RT 2-3V wo/w pel* [id number] IMPRESSION: Degenerative changes. No acute injury. The
--- NOTE | 2022-08-26 17:20 | XRR_ITS ---
PROCEDURE INFORMATION: Exam: XR Lumbosacral Spine Exam date and time: 08/26/2022 5:34 PM Age: 66 years old Clinical indication: Injury or trauma; Fall; Blunt trauma (contusions or hematomas); Additional info: Fall injury x today. PT C/O severe lower back pain. Difficulty ambulating TECHNIQUE: Imaging protocol: Radiologic exam of the lumbosacral spine. Views: 2 or 3 views. COMPARISON: CR XR lumbar spine 2-3V* [id number] 04/15/2022 9:19 AM FINDINGS: Bones/joints: Mild left convex scoliosis is unchanged. Vertebral body heights are maintained. Mild multilevel degenerative disc disease with facet joint arthritis is similar. No acute osseous injury. Soft tissues: Unremarkable. Vasculature: Atherosclerosis. XR/XR lumbar spine 2-3V* [id number] IMPRESSION: Degenerative changes. No acute injury.
--- NOTE | 2022-08-26 17:21 | W.ED.FALL ---
HPI - Fall General: Chief Complaint: Fall Stated Complaint: FALL, LOW BACK/HIP PAIN Time Seen by Provider: 08/26/22 17:19 History of Present Illness: 66-year-old female patient was hanging up her curtain in the bathroom when she went to step down from the chair slipped and fell backwards onto the floor. Patient reports low back pain and right hip pain. Patient did also hit her head but denies any neck or head pain. Patient has medical history of vertebral disc disease, COPD, CHF, GERD, coronary artery disease, anxiety disorder, osteoarthritis, and hemorrhoids. Patient takes daily aspirin but no routine anticoagulants. Patient appears nontoxic. Patient appears in mild to moderate pain. Associated symptoms-after fall: Denies chest pain Review of Systems General: Reports: 10 or more systems reviewed and unremarkable except in HPI and below Const: Denies: fever(s) ENMT: Denies: throat pain Card: Denies: chest pain Resp: Denies: dyspnea GI: Denies: nausea, vomiting, diarrhea or constipation : Denies: difficulty voiding Musc: Reports: back pain and joint pain Skin/Breast: Denies: rash PFSH ED PFSH: Medical History Allergic rhinitis Benign essential hypertension CHF (congestive heart failure) Chronic pain syndrome COPD (chronic obstructive pulmonary disease) Coronary artery disease Diabetes Elevated white blood cell count, unspecified PILAR (generalized anxiety disorder) GERD (gastroesophageal reflux disease) Hyperlipidemia Hypothyroidism Insomnia Intrahepatic bile duct dilation Muscle spasm Neuropathy Other elevated white blood cell count Primary osteoarthritis of both knees Surgical History History of cholecystectomy History of hysterectomy History of tubal ligation Family History Father Hypertension Myocardial infarction Cancer Colon Brother Hypertension Diabetes Mother Hypertension Myocardial infarction Cancer Breast Sister Hypertension Brother Myocardial infarction Cancer Colon Family/Other Cancer Aunt 2x Breast Other Stroke Social History Smoking and tobacco status: current every day smoker cigarettes [ Other cigarette details: 4 per week] Quit status (tobacco): not considering quitting Second hand smoke exposure: Yes Smoking risk assessment/counseling performed?: No Alcohol intake: never Desire information about alcohol rehabilitation?: No Counseling given: No Desire information about substance/drug rehabilitation?: No Counseling given: No Sexually active: No Current gender identity: Female Female Reproductive History: Spontaneous abortions: No Physical Exam Const: COMMON NORMALS: alert HENMT: COMMON NORMALS: atraumatic HEAD & SCALP: atraumatic Neck/C-Spine: COMMON NORMALS: full ROM Resp: COMMON NORMALS: normal respiratory effort and clear to auscultation bilaterally AUSCULTATION: clear to auscultation bilaterally Cardio: COMMON NORMALS: regular rate and regular rhythm RATE: regular rate RHYTHM: regular rhythm GI: COMMON NORMALS: Soft to palpation PALPATION: Yes Soft to palpation Back/Pelvis: THORACIC SPINE/UPPER BACK: Yes thoracic spinal tenderness T-spine tenderness location: T12 and No paraspinal muscle tenderness LUMBAR SPINE/LOWER BACK: Yes lumbar spinal tenderness Lumbar spinal tenderness location: L5 and No paraspinal muscle tenderness Extremity: RIGHT LOWER EXTREMITY: Yes hip joint (hip pain) Neuro: SENSORIUM/ORIENTATION: Yes alert Skin: COMMON NORMALS: no rashes or lesions noted GENERAL SKIN EXAM: no rashes or lesions noted Course Vital Signs: Vital signs: Vital Signs Temperature 97.5 F L 08/26/22 16:39 Pulse Rate 85 08/26/22 16:39 Respiratory Rate 18 08/26/22 16:39 Blood Pressure 143/94 08/26/22 16:39 Pulse Oximetry 93 08/26/22 16:39 Oxygen Delivery Me thod 08/26/22 16:39 MDM - Fall Medical Decision Making 66-year-old female comes in today for complaints of low back pain and right hip pain after a fall. Patient does have a history of intervertebral disc disease. Patient appears nontoxic. Patient does appear in mild to moderate pain. On exam patient has some tenderness in the lower thoracic and lower lumbar area of the spine. Patient moves all extremities well. Patient is able to ambulate. Patient does have some lateral right hip pain. No injuries noted to the scalp. Vital signs are normal. Differential diagnosis includes contusion, fracture, intervertebral disc disease, facet arthropathy. CT scan of the head was negative for intracranial bleeding or skull fracture. X-ray of the right hip noted degenerative changes. X-ray of the lumbar spine noted degenerative changes. Patient was given 1 hydrocodone in the ER with improvement in pain and discomfort. Patient was able to ambulate. Reviewed exam with patient with recommendations for treatment of back pain and hip pain and follow-up. Patient reported understanding and agreed to plan. Lab Data Radiology Impressions Head CT 08/26/22 17:20 IMPRESSION: No acute intracranial abnormality. Hip/Pelvis X-Ray 08/26/22 17:20 IMPRESSION: Degenerative changes. No acute injury. The Lumbar Spine X-Ray 08/26/22 17:20 IMPRESSION: Degenerative changes. No acute injury. Discharge Plan Discharge Patient Disposition: Home Clinical Impression: Hip pain, right Fall Qualifiers: Encounter type: initial encounter Qualified Code(s): W19.XXXA - Unspecified fall, initial encounter Back pain Qualifiers: Back pain location: low back pain Chronicity: acute Back pain laterality: right Sciatica presence: with sciatica Sciatica laterality: sciatica of right side Qualified Code(s): M54.41 - Lumbago with sciatica, right side Condition: Stable Prescriptions: New hydrocodone-acetaminophen 5-325 mg tablet 1 tab PO Q8H PRN (Reason: pain (scale score 7-10)) Qty: 10 0RF No Action albuterol sulfate 2.5 mg /3 mL (0.083 %) solution for nebulization 2.5 mg INHALATION Q6H PRN (Reason: Shortness Of Breath) nitroglycerin [Nitrostat] 0.4 mg tablet, sublingual 0.4 mg SUBLINGUAL Q5M PRN (Reason: Chest Pain) cholecalciferol (vitamin D3) 25 mcg (1,000 unit) tablet 125 mcg PO DIRECTED Rx Instructions: Every and Wedd vitamin B complex-vit B12 1,200 mcg/mL drops 1 drp SUBLINGUAL DAILY PRN (Reason: exhaustion) Rx Instructions: 1 mL sublingual once; aspirin 81 mg tablet,delayed release (DR/EC) 81 mg PO DAILY melatonin 5 mg capsule 5 mg PO DAILY PRN (Reason: Sleep) krill oil 500 mg capsule 500 mg PO DAILY duloxetine 20 mg capsule,delayed release(DR/EC) 40 mg PO DAILY 90 Days Qty: 180 1RF cetirizine 10 mg capsule 10 mg PO DAILY 90 Days Qty: 90 1RF (DME) Marijuana 0 .Route .MEDSUPPLY Label Comments: [place]. Pt has medical card tizanidine 4 mg tablet 4 mg PO BID 90 Days Qty: 180 1RF Levemir FlexTouch U-100 Insuln 100 unit/mL (3 mL) insulin pen 75 unit SUBCUT DAILY 90 Days Qty: 69 2RF (DME) pen needle, diabetic [Comfort EZ Pen [place]] 31 gauge x 5/16 needle See Rx Instructions .ROUTE .MEDSUPPLY Qty: 100 12RF Rx Instructions: As directed with insulin (DME) OneTouch Verio test strips Strip See Rx Instructions .ROUTE .MEDSUPPLY Qty: 100 12RF Rx Instructions: one strip three times daily gabapentin 400 mg capsule See Rx Instructions .ROUTE .COMPLEX Qty: 60 0RF Dose Instruction: TAKE ONE CAPSULE BY MOUTH TWICE A DAY Rx Instructions: TAKE ONE CAPSULE BY MOUTH TWICE A DAY atorvastatin 20 mg tablet 20 mg PO QPM Rx Instructions: TAKE ONE TABLET BY MOUTH EVERY EVENING clonidine HCl 0.2 mg tablet 0.2 mg PO BID Rx Instructions: TAKE ONE TABLET BY MOUTH TWICE A DAY levothyroxine 150 mcg tablet 150 mcg PO DAILY Rx Instructions: TAKE ONE TABLET BY MOUTH DAILY FOR 90 DAYS lisinopril-hydrochlorothiazide 20-25 mg tablet 1 tab PO DAILY Rx Instructions: TAKE ONE TABLET BY MOUTH DAILY furosemide 20 mg tablet 20 mg PO QAM Rx Instructions: TAKE ONE TABLET EVERY MORNING albuterol sulfate 90 mcg/actuation HFA aerosol inhaler 2 puff inhalation Q6H PRN (Reason: Shortness Of Breath) Rx Instructions: INHALE 2 PUFF(S) BY MOUTH EVERY 6 HOURS NEEDED FOR SHORTNESS OF BREATH OR WHEEZING metoprolol tartrate 25 mg tablet 25 mg PO BID Rx Instructions: TAKE ONE TABLET BY MOUTH TWICE A DAY Symbicort 160-4.5 mcg/actuation HFA aerosol inhaler 2 puff inhalation BID Rx Instructions: 2 PUFFS BY INHALATION TWICE A DAY Tylenol 1,000 mg PO TID Protonix 40 mg tablet,delayed release (DR/EC) 40 mg PO BID 42 Days Qty: 84 1RF Procto-Med HC 2.5 % cream with perineal applicator 1 applic SD QID 21 Days Qty: 30 1RF Discharge Orders: Discharge ED (Routine); Ordered 08/26/22 Ordered By: Ivan Franco Referrals: Nataliia Murphy MD [Primary Care Provider] - Discharge Diet: Usual diet Discharge Activity: Increase activity as tolerated Patient Instructions: Opioid Safety, Pain Management Activity Restrictions/Additional Instructions: Activity as tolerated. Use acetaminophen and/or ibuprofen to control pain. Use hydrocodone for severe pain. Drink plenty of water with medication. Maintain normal activity is much as possible. Follow-up with primary care in 3 to 5 days for recheck. Return to the ER as needed for worsening symptoms or new concerns. Coding Level of Care Code ED Division Human Resources Manager for [facility]
[2022-08-26] MEDS: HYDROcodone-acetaminophen 10-325 mg Tablet 1 TAB PO (17:59)
== END 2022-08-26 18:08 | disposition home or self-care (01) ==
PROVIDERS: Emergency Provider Nurse Practitioner Family; PCP Family Medicine
DX: M54.41 Lumbago with sciatica, right side (principal); M25.551 Pain in right hip; Z79.82 Long term (current) use of aspirin; Z79.4 Long term (current) use of insulin; F17.210 Nicotine dependence, cigarettes, uncomplicated; I11.0 Hypertensive heart disease with heart failure; I50.9 Heart failure, unspecified; J44.9 Chronic obstructive pulmonary disease, unspecified; I25.10 Atherosclerotic heart disease of native coronary artery without angina pectoris; E11.9 Type 2 diabetes mellitus without complications; E78.5 Hyperlipidemia, unspecified
CPT/HCPCS: 70450; 72100; 73502; 99284

== ENCOUNTER → 2022-10-26 09:16 | Outpatient (BNVA) | payer MEDICARE, SELFPAY | PROVIDERS: PCP Family Medicine; Visit Provider Anesthesiology Pain Medicine | DX: M51.16 Intervertebral disc disorders with radiculopathy, lumbar region (principal); M47.816 Spondylosis without myelopathy or radiculopathy, lumbar region; M16.0 Bilateral primary osteoarthritis of hip | CPT/HCPCS: 99215 ==

== ENCOUNTER → 2022-11-18 13:51 | Outpatient (BNVA) | payer MEDICARE, SELFPAY | PROVIDERS: Visit Provider Anesthesiology Pain Medicine | DX: M79.18 Myalgia, other site (principal); M47.816 Spondylosis without myelopathy or radiculopathy, lumbar region; M51.16 Intervertebral disc disorders with radiculopathy, lumbar region | CPT/HCPCS: 20553; J1030; J3490 ==

== ENCOUNTER 2022-11-30 10:50 | Outpatient (RCR) | payer MEDICARE, SELFPAY | END 2022-12-18 23:59 | disposition home or self-care (01) | LOC: SPT 10:50 | PROVIDERS: Visit Provider Anesthesiology Pain Medicine | DX: M54.50 Low back pain, unspecified (principal); G89.29 Other chronic pain | CPT/HCPCS: 97110; 97161; G0283 ==

== ENCOUNTER → 2022-12-14 10:45 | Outpatient (BNVA) | payer MEDICARE, SELFPAY | PROVIDERS: Visit Provider Anesthesiology Pain Medicine | DX: M51.16 Intervertebral disc disorders with radiculopathy, lumbar region (principal); M47.816 Spondylosis without myelopathy or radiculopathy, lumbar region | CPT/HCPCS: 99214 ==

== ENCOUNTER 2022-12-19 06:00 | Outpatient (RCR) | payer MEDICARE, SELFPAY | END 2023-01-18 23:59 | disposition home or self-care (01) | LOC: SPT 06:00 | PROVIDERS: Visit Provider Anesthesiology Pain Medicine | DX: M54.50 Low back pain, unspecified (principal); G89.29 Other chronic pain | CPT/HCPCS: 97110; G0283 ==

== ENCOUNTER → 2023-01-04 09:00 | Outpatient (BNVA) | payer MEDICARE, SELFPAY | PROVIDERS: Visit Provider Family Medicine | DX: J30.9 Allergic rhinitis, unspecified (principal); K21.9 Gastro-esophageal reflux disease without esophagitis; I10 Essential (primary) hypertension; E11.9 Type 2 diabetes mellitus without complications; E11.42 Type 2 diabetes mellitus with diabetic polyneuropathy; Z79.4 Long term (current) use of insulin; E03.9 Hypothyroidism, unspecified; M51.16 Intervertebral disc disorders with radiculopathy, lumbar region; J30.1 Allergic rhinitis due to pollen; Z12.31 Encounter for screening mammogram for malignant neoplasm of breast | CPT/HCPCS: 80053; 83036; 84443 ==

== ENCOUNTER → 2023-01-07 14:11 | Outpatient (BNVA) | payer MEDICARE, SELFPAY | PROVIDERS: Visit Provider Anesthesiology Pain Medicine | DX: M51.16 Intervertebral disc disorders with radiculopathy, lumbar region (principal); M47.816 Spondylosis without myelopathy or radiculopathy, lumbar region; M54.2 Cervicalgia | CPT/HCPCS: 64493; 64494; 64495; J3490 ==

== ENCOUNTER → 2023-02-01 10:35 | Outpatient (BNVA) | payer MEDICARE, SELFPAY | PROVIDERS: Visit Provider Anesthesiology Pain Medicine | DX: M47.816 Spondylosis without myelopathy or radiculopathy, lumbar region; M51.16 Intervertebral disc disorders with radiculopathy, lumbar region; M54.2 Cervicalgia | CPT/HCPCS: 99214 ==

== ENCOUNTER → 2023-03-01 13:22 | Outpatient (BNVA) | payer MEDICARE, SELFPAY | PROVIDERS: Visit Provider Anesthesiology Pain Medicine | DX: M47.816 Spondylosis without myelopathy or radiculopathy, lumbar region (principal) | CPT/HCPCS: 64635; 64636; J1030 ==

== ENCOUNTER → 2023-03-15 12:50 | Outpatient (BNVA) | payer MEDICARE, SELFPAY | PROVIDERS: Visit Provider Anesthesiology Pain Medicine | DX: M47.816 Spondylosis without myelopathy or radiculopathy, lumbar region (principal) | CPT/HCPCS: 64635; 64636; J1030 ==

== ENCOUNTER → 2023-03-22 12:07 | Outpatient (BNVA) | payer MEDICARE, SELFPAY | PROVIDERS: PCP Family Medicine; Visit Provider Internal Medicine Rheumatology | DX: M51.16 Intervertebral disc disorders with radiculopathy, lumbar region (principal); Z79.899 Other long term (current) drug therapy; M25.50 Pain in unspecified joint; M45.6 Ankylosing spondylitis lumbar region; M19.071 Primary osteoarthritis, right ankle and foot; M19.90 Unspecified osteoarthritis, unspecified site; Z71.85 Encounter for immunization safety counseling | CPT/HCPCS: 36415; 73630; 80076; 82565; 85025; 85651; 86200; 86431; 86480; 86704; 86803; 86812; 87340; 99204 ==

== ENCOUNTER → 2023-04-05 09:01 | Outpatient (BNVA) | payer MEDICARE, SELFPAY | PROVIDERS: PCP Family Medicine; Visit Provider Anesthesiology Pain Medicine | DX: M47.816 Spondylosis without myelopathy or radiculopathy, lumbar region; M51.16 Intervertebral disc disorders with radiculopathy, lumbar region | CPT/HCPCS: 99214 ==

== ENCOUNTER 2023-04-26 13:18 | Outpatient (CLI) | payer MEDICARE, SELFPAY ==
--- NOTE | 2023-04-26 13:39 | MM_ITS ---
WS: [id number] BILATERAL 3D TOMOSYNTHESIS DIGITAL SCREENING MAMMOGRAPHY WITH CAD CLINICAL INFORMATION: Z12.39 - Encounter for other screening for malignant neop... HISTORY: Screening mammogram. No current complaints. COMPARISON: 2011 TECHNIQUE: Bilateral CC and MLO views. FINDINGS: Scattered fibroglandular densities bilaterally. No suspicious focal mass, asymmetry, calcifications, or architectural distortion. No evidence of malignancy. Incidental punctate and loosely clustered tryone cifications. IMPRESSION: MM/[place] [id number] BI-RADS: 2-Benign FOLLOW UP: 1 Year Follow-up Recommend return to annual screening mammography.
== END 2023-04-26 13:19 | disposition home or self-care (01) ==
LOC: RAD 13:18
PROVIDERS: PCP Family Medicine; Visit Provider Family Medicine
DX: Z12.31 Encounter for screening mammogram for malignant neoplasm of breast (principal)
CPT/HCPCS: 77063; 77067

== ENCOUNTER 2023-05-10 10:44 | Outpatient (CLI) | payer MEDICARE, SELFPAY ==
--- NOTE | 2023-05-10 11:00 | MR_ITS ---
WS: [id number] MRI LUMBAR SPINE WITH CONTRAST TECHNIQUE: Sagittal T1, T2 and STIR imaging. Axial T1 and T2 imaging. Post gadolinium imaging was obt ained. CLINICAL INFORMATION: M51.16 - Intervertebral disc disorders with radiculopathy... COMPARISON: None. FINDINGS: Mild lumbar curve. No acute compression. No high-grade central canal stenosis. No abnormal gadolinium enhancement. L1-L2: Mild annular bulging. Spinal canal and foramen are patent. L2-L3: Mild annular bulging. Mild facet arthropathy. Spinal canal and foramen are patent. L3-L4: Slight anterolisthesis. Mild central canal stenosis. Moderate facet arthropathy. Mild RIGHT gr eater than LEFT foraminal narrowing. L4-L5: Mild annular bulging. Mild central canal stenosis. Narrowing of the subarticular recess bilate rally. Moderate facet arthropathy. Mild LEFT greater than RIGHT foraminal narrowing. L5-S1: No significant disc bulging. Moderate facet arthropathy. Spinal canal and foramen are patent. Visualized pelvic bony structures: Normal. Paravertebral soft tissues: Normal. LEFT adrenal lesion likely lipoma or myelolipoma measuring 12 mm. Slightly aneurysmal infrarenal abdo michelle aorta measuring 2.6 x 2.4 cm AP by transverse IMPRESSION: 1. Mild lumbar curve. No acute compression. No high-grade central canal stenosis. 2. Mild central canal stenosis L3-L4 and L4-L5 due to disc bulging in combination with facet arthrop athy and ligamentum flavum hypertrophy. Impingement on the subarticular recess L4-5 LEFT greater than RIGHT. 3. Slight anterolisthesis L3 on L4. Mild RIGHT greater than LEFT L3-4 foraminal narrowing. 4. Mild LEFT greater than RIGHT L4-5 foraminal narrowing. 5. Moderate facet arthropathy L3-L4 L4-L5 and L5-S1.
[2023-05-10] MEDS: gadobenate dimeglumine 20 mL vial IV (12:09)
--- NOTE | 2023-05-10 12:30 | CT_ITS ---
WS: [id number] LDCT LUNG CANCER SCREENING HISTORY: F17.210 - Nicotine dependence, cigarettes, uncomplicated TECHNIQUE: Axial imaging performed from the apices to 1 cm below the costophrenic angles. Coronal and sagittal reformats are submitted with axial MIP series. All CT scans at [facility] use at least one of these dose optimization techniques: automated exposure control; mA and/or kV adjustment per patient size (includes targeted exams where dose is matched to clinical indication); or iterativ e reconstruction. DLP: 85.01 mGy.cm DIvol: Mean CTDIvol: 1.90 (mGy) COMPARISON: None available. Diagnostic quality: Satisfactory Lungs: 4 mm noncalcified nodule LEFT upper lobe. RIGHT upper lobe spiculated nodule 15 x 14 mm RIGHT upper lobe with pleural tethering. 5 mm nodule in the anterior RIGHT lung is probably in the middle l obe adjacent to the seizure. Benign calcified granuloma LEFT lower lobe. No endobronchial lesions. Heart: Normal size heart with no pericardial effusion.. Heavy calcification in the coronary arteries. Other findings: Mediastinal and hilar lymph nodes are not enlarged. Mild atherosclerosis aorta. 14 mm mass closely associated with the LEFT adrenal gland. Incompletely visualized. Hounsfield units are n egative suggesting this may be a benign adenoma. Additional similar low-attenuation mass associated w ith the RIGHT adrenal gland. RIGHT adrenal mass measures 18 mm. IMPRESSION: CT/CT lung screening [id number] LUNG-RADS: 4BS-Suspicious with Significant Findings FOLLOW UP: PET/CT recommended OTHER FINDINGS (S MODIFIER): Advanced atherosclerosis coronary arteries. Bilateral adrenal adenomas.
== END 2023-05-10 10:45 | disposition home or self-care (01) ==
LOC: RAD 10:44
PROVIDERS: PCP Family Medicine; Visit Provider Family Medicine
DX: M51.16 Intervertebral disc disorders with radiculopathy, lumbar region (principal); F17.210 Nicotine dependence, cigarettes, uncomplicated; Z12.2 Encounter for screening for malignant neoplasm of respiratory organs; D35.02 Benign neoplasm of left adrenal gland; D35.01 Benign neoplasm of right adrenal gland; R91.8 Other nonspecific abnormal finding of lung field; M47.817 Spondylosis without myelopathy or radiculopathy, lumbosacral region
CPT/HCPCS: 71271; 72158; A9577

== ENCOUNTER → 2023-05-11 09:22 | Outpatient (BNVA) | payer MEDICARE, SELFPAY | PROVIDERS: PCP Family Medicine; Referring Provider Internal Medicine Rheumatology; Visit Provider Internal Medicine Rheumatology | DX: K76.0 Fatty (change of) liver, not elsewhere classified (principal); M19.90 Unspecified osteoarthritis, unspecified site; Z79.899 Other long term (current) drug therapy; E03.9 Hypothyroidism, unspecified; E11.42 Type 2 diabetes mellitus with diabetic polyneuropathy; E11.9 Type 2 diabetes mellitus without complications; Z79.4 Long term (current) use of insulin; Z51.81 Encounter for therapeutic drug level monitoring; I10 Essential (primary) hypertension | CPT/HCPCS: 80076; 82565; 83036; 84439; 84443; 84481; 85025; 86140 ==

== ENCOUNTER → 2023-05-24 11:15 | Outpatient (BNVA) | payer MEDICARE, SELFPAY | PROVIDERS: PCP Family Medicine; Visit Provider Anesthesiology Pain Medicine | DX: M47.816 Spondylosis without myelopathy or radiculopathy, lumbar region; M51.16 Intervertebral disc disorders with radiculopathy, lumbar region | CPT/HCPCS: 99214 ==

== ENCOUNTER → 2023-06-07 10:34 | Outpatient (BNVA) | payer MEDICARE, SELFPAY | PROVIDERS: PCP Family Medicine; Visit Provider Internal Medicine Rheumatology | DX: Z79.899 Other long term (current) drug therapy (principal); M19.90 Unspecified osteoarthritis, unspecified site; E03.9 Hypothyroidism, unspecified; Z71.85 Encounter for immunization safety counseling | CPT/HCPCS: 99214 ==

== ENCOUNTER → 2023-07-13 10:16 | Outpatient (BNVA) | payer MEDICARE, SELFPAY | PROVIDERS: PCP Family Medicine; Visit Provider Family Medicine | DX: K21.9 Gastro-esophageal reflux disease without esophagitis (principal); M62.838 Other muscle spasm; I10 Essential (primary) hypertension; M51.16 Intervertebral disc disorders with radiculopathy, lumbar region; J44.9 Chronic obstructive pulmonary disease, unspecified; E78.2 Mixed hyperlipidemia; G89.4 Chronic pain syndrome; F41.1 Generalized anxiety disorder; J30.9 Allergic rhinitis, unspecified; E11.42 Type 2 diabetes mellitus with diabetic polyneuropathy; Z79.4 Long term (current) use of insulin; Z74.09 Other reduced mobility; Z78.9 Other specified health status; G62.9 Polyneuropathy, unspecified; E03.9 Hypothyroidism, unspecified; Z79.899 Other long term (current) drug therapy; M19.90 Unspecified osteoarthritis, unspecified site; J30.1 Allergic rhinitis due to pollen; R91.8 Other nonspecific abnormal finding of lung field | CPT/HCPCS: 80076; 82306; 82565; 84439; 84443; 84481; 85025; 86140 ==

== ENCOUNTER → 2023-07-19 13:22 | Outpatient (BNVA) | payer MEDICARE, SELFPAY | PROVIDERS: PCP Family Medicine; Visit Provider Anesthesiology Pain Medicine | DX: M54.16 Radiculopathy, lumbar region (principal) | CPT/HCPCS: 64483; 64484; J1100; J3490 ==

== ENCOUNTER → 2023-07-26 12:31 | Outpatient (BNVA) | payer MEDICARE, SELFPAY | PROVIDERS: PCP Family Medicine; Referring Provider Family Medicine; Visit Provider Internal Medicine | DX: R07.9 Chest pain, unspecified (principal); M51.16 Intervertebral disc disorders with radiculopathy, lumbar region; I71.40 Abdominal aortic aneurysm, without rupture, unspecified; I11.0 Hypertensive heart disease with heart failure; I50.9 Heart failure, unspecified; E78.2 Mixed hyperlipidemia; E11.42 Type 2 diabetes mellitus with diabetic polyneuropathy; Z79.4 Long term (current) use of insulin; F17.200 Nicotine dependence, unspecified, uncomplicated; R94.31 Abnormal electrocardiogram [ECG] [EKG] | CPT/HCPCS: 93005; 99204 ==

== ENCOUNTER 2023-07-27 07:34 | Outpatient (CLI) | payer MEDICARE, SELFPAY ==
--- NOTE | 2023-07-27 16:44 | PETR_ITS ---
PROCEDURE INFORMATION: Exam: PET/CT Skull Base to Mid-thigh Exam date and time: 07/27/2023 9:10 AM Age: 67 years old Clinical indication: Abnormal findings; Other findings: Mediastinal and hilar lymph nodes are not enlarged. Mild atherosclerosis aorta. 14. Mm mass closely associated with the left adrenal gland. Incompletely visualized. Hounsfield units. Are negative suggesting this May be a benign adenoma. Additional similar low-attenuation mass. Associated with the right adrenal gland. Right adrenal mass measures 18 mm. ; Additional info: R91.8 - other nonspecific abnormal finding of lung field LABS AND CLINICAL REPORTS: Glucose: 90 mg/dl Treatment strategy for malignancy (PET staging): Initial Staging (PI) TECHNIQUE: Imaging protocol: Following at least four-hour fasting and following the injection of radiopharmaceutical, low dose CT images were obtained. Then, PET images were obtained. Attenuation corrected images were constructed using the CT scan. Fused images of PET and CT were reviewed. The standardized uptake values (SUV) reported below are maximum values within a region of interest, expressed in gm/ml. Exam includes orbital meatal line to mid-thigh. Radiopharmaceutical: 11.86 mCi F-18 FDG (Fluorodeoxyglucose), IV. Time of imaging post radiopharmaceutical administration: 1 hour Injection site: Left antecubital COMPARISON: CT chest 05/10/2023, MR MRCP [id number] 05/23/2019 12:04 PM FINDINGS: Brain: Visualized brain has normal physiologic uptake. Pharynx: There is asymmetric uptake in the left palatine tonsil, SUV max 4.8. The left palatine tonsil appears slightly asymmetrically prominent compared with the right. Larynx: No abnormal uptake. Lungs, pleura and trachea: A solid posterior right upper lobe nodule measuring 1.3 x 1.5 cm on series 3, image 67 is similar in size compared with 05/10/2023 and is not radiotracer avid, SUV max 0.8. Heart: Normal physiologic uptake. Mediastinal space: No abnormal uptake. Liver: No abnormal uptake. Gallbladder and bile ducts: No abnormal uptake. The gallbladder is not identified. There is similar [id number] prominence of the common bile duct, likely within normal limits in the setting of cholecystectomy. Pancreas: No abnormal uptake. Spleen: No abnormal uptake. Adrenal glands: Low-density nodularity of both adrenal glands is noted without elevated uptake, for example measuring 2.4 x 1.8 cm on the right on series 3, image 118 and on the left measuring 2.2 x 1.6 cm on series 3, image 128 containing a rounded focus of central fat density. Kidneys and ureters: Normal physiologic uptake. Stomach and bowel: There is physiologic appearing uptake within the stomach and bowel. A duodenal diverticulum is present. Vasculature: No abnormal uptake. Diffuse atherosclerotic changes are noted including within the coronary arteries. Lymph nodes: No abnormal uptake. A mildly prominent precarinal lymph node is noted without elevated uptake measuring 1.9 x 0.9 cm on series 3, image 69. Calcified non radiotracer avid small subcarinal and left hilar lymph nodes are present. Bones/joints: No abnormal uptake in the visualized axial and appendicular skeleton. Left hip primary osteoarthritic changes are noted. Degenerative changes in the spine are present. Soft tissues: Regions of benign-appearing muscular uptake are identified, for example in the proximal cervical spine posteriorly on the left, SUV max 6.0 without a correlating lesion on the CT images. Mild benign-appearing streaky subcutaneous density is noted along the anterior pelvic wall without significant uptake. METRICS: Mediastinal blood pool: SUV max 1.9 PET/PET skulltothigh SUBSEQ [id number] IMPRESSION: 1. A solid right upper lobe nodule is not radiotracer avid which favors a benign etiology. Non hypermetabolic malignancy cannot be entirely excluded. 2. Asymmetric uptake within a mildly prominent left palatine tonsil is noted. A benign inflammatory or infectious etiology is favored. A malignant etiology is less likely. 3. Non radiotracer avid bilateral low-density adrenal nodules are present compatible with a benign etiology. 4. A single mildly prominent precarinal lymph node is noted without elevated uptake. 5. Additional nonurgent findings as detailed above.
== END 2023-07-27 07:35 | disposition home or self-care (01) ==
LOC: RAD 07:34
PROVIDERS: PCP Family Medicine; Visit Provider Family Medicine
DX: R91.8 Other nonspecific abnormal finding of lung field (principal); D35.01 Benign neoplasm of right adrenal gland
CPT/HCPCS: 78815; A9552

== ENCOUNTER → 2023-08-03 10:02 | Outpatient (BNVA) | payer MEDICARE, MEDICAID, SELFPAY | PROVIDERS: PCP Family Medicine; Visit Provider Anesthesiology Pain Medicine | DX: M51.16 Intervertebral disc disorders with radiculopathy, lumbar region (principal); G62.9 Polyneuropathy, unspecified; M47.816 Spondylosis without myelopathy or radiculopathy, lumbar region; M43.16 Spondylolisthesis, lumbar region; M48.061 Spinal stenosis, lumbar region without neurogenic claudication | CPT/HCPCS: 99215 ==

== ENCOUNTER → 2023-09-09 11:36 | Outpatient (BNVA) | payer MEDICARE, MEDICAID, SELFPAY | PROVIDERS: PCP Family Medicine; Referring Provider Internal Medicine Rheumatology; Visit Provider Internal Medicine Rheumatology | DX: Z79.899 Other long term (current) drug therapy (principal); M19.90 Unspecified osteoarthritis, unspecified site | CPT/HCPCS: 80076; 82565; 85025; 86140 ==

== ENCOUNTER → 2023-10-01 07:45 | Outpatient (BNVA) | payer MEDICARE, MEDICAID, SELFPAY | PROVIDERS: PCP Family Medicine; Visit Provider Internal Medicine Pulmonary Disease | DX: J41.0 Simple chronic bronchitis (principal); R91.1 Solitary pulmonary nodule; J30.9 Allergic rhinitis, unspecified; R06.02 Shortness of breath; Z71.6 Tobacco abuse counseling; F17.210 Nicotine dependence, cigarettes, uncomplicated | CPT/HCPCS: 36415; 82785; 86003; 99204 ==

== ENCOUNTER 2023-10-25 09:00 | Outpatient (CLI) | payer MEDICARE, MEDICAID, SELFPAY | END 2023-10-25 09:01 | disposition home or self-care (01) | LOC: RT 09:00 | PROVIDERS: PCP Family Medicine; Visit Provider Internal Medicine Pulmonary Disease | DX: J41.0 Simple chronic bronchitis (principal); I10 Essential (primary) hypertension; E11.9 Type 2 diabetes mellitus without complications | CPT/HCPCS: 80053; 80061; 83036; 94010; 94618; 94726; 94729 ==

== ENCOUNTER 2024-01-10 07:16 | Outpatient (CLI) | payer MEDICARE, MEDICAID, SELFPAY ==
--- NOTE | 2024-01-10 07:30 | USCV_ITS ---
Dee Barros Age: 68 Gender: F : 1955 Exam Date: 01/10/2024 07:22 Ordering Phys: John Cabrera M.D ([email or web address]) Technologist: Exam Location: [facility] [place] Indication: hx of aaa HISTORY: Diameter (cm) AP x Transverse x Length Velocity (cm/s) Waveform Prox Aorta: 1.80 x 1.80 x 86.30 Triphasic Mid Aorta: 2.30 x 2.40 x 67.50 Triphasic Distal Aorta: 3.00 x 2.80 x 94.60 Triphasic Right Iliac Prox: 0.89 x 1.00 x 86.70 Triphasic Left Iliac Prox: 0.89 x 0.84 x 103.60 Triphasic Stent Prox Landing x x Aneurysmal Sac Max x x Lt Lat Sac Dim Rt Lat Sac Dim Stent Dist Landing x x Right Iliac Stent x x Left Iliac Stent x x Right Renal Art Left Renal Art FINDINGS: Comparison: none available. Ectatic abdominal aorta with evidence of atherosclerotic plaque noted. Mild aneurysmal dilatation to 3.0 cm.there is evidence of atherosclerotic plaque no significan stenosis in the right common iliac artery. There is evidence of atherosclerotic plaque no significan stenosis in the left common iliac artery. CONCLUSIONS Minimal AAA, 3.0 cm. Ectatic abdominal aorta with evidence of atherosclerotic plaque noted. Dr. Jordyn Fragoso DO (Electronically Signed) Final Date: 11 January 2024 07:15 S
== END 2024-01-10 07:17 | disposition home or self-care (01) ==
LOC: RAD 07:16
PROVIDERS: PCP Family Medicine; Visit Provider Internal Medicine
DX: I71.40 Abdominal aortic aneurysm, without rupture, unspecified (principal); I70.0 Atherosclerosis of aorta
CPT/HCPCS: 93978

== ENCOUNTER → 2024-03-20 10:34 | Outpatient (BNVA) | payer MEDICARE, MEDICAID, SELFPAY | PROVIDERS: PCP Family Medicine; Visit Provider Internal Medicine | DX: I71.40 Abdominal aortic aneurysm, without rupture, unspecified (principal); I11.0 Hypertensive heart disease with heart failure; I50.9 Heart failure, unspecified; E78.2 Mixed hyperlipidemia; E11.42 Type 2 diabetes mellitus with diabetic polyneuropathy; Z79.4 Long term (current) use of insulin; F17.200 Nicotine dependence, unspecified, uncomplicated | CPT/HCPCS: 99214 ==

== ENCOUNTER → 2024-04-17 12:55 | Outpatient (BNVA) | payer MEDICARE, MEDICAID, SELFPAY | PROVIDERS: PCP Family Medicine; Visit Provider Internal Medicine Rheumatology | DX: Z79.899 Other long term (current) drug therapy (principal); M19.90 Unspecified osteoarthritis, unspecified site; M25.559 Pain in unspecified hip | CPT/HCPCS: 20610; 36415; 73502; 80076; 82565; 85025; 85651; 86140; 99214; J1010 ==

== ENCOUNTER → 2024-05-29 13:11 | Outpatient (BNVA) | payer MEDICARE, MEDICAID, SELFPAY | PROVIDERS: PCP Family Medicine; Referring Provider Internal Medicine Rheumatology; Visit Provider Internal Medicine Rheumatology | DX: Z79.899 Other long term (current) drug therapy (principal) | CPT/HCPCS: 85025 ==

== ENCOUNTER → 2024-05-30 16:07 | Outpatient (BNVA) | payer MEDICARE, MEDICAID, SELFPAY | PROVIDERS: PCP Family Medicine; Referring Provider Internal Medicine Rheumatology; Visit Provider Internal Medicine Rheumatology | DX: Z79.899 Other long term (current) drug therapy (principal) | CPT/HCPCS: 80076; 82565; 82657; 85025; 85651; 86140 ==

== ENCOUNTER → 2024-07-03 11:11 | Outpatient (BNVA) | payer MEDICARE, MEDICAID, SELFPAY | PROVIDERS: PCP Family Medicine; Visit Provider Family Medicine | DX: K21.9 Gastro-esophageal reflux disease without esophagitis (principal); J44.9 Chronic obstructive pulmonary disease, unspecified; E78.2 Mixed hyperlipidemia; I10 Essential (primary) hypertension; G89.4 Chronic pain syndrome; F41.1 Generalized anxiety disorder; I50.9 Heart failure, unspecified; M51.16 Intervertebral disc disorders with radiculopathy, lumbar region; E03.9 Hypothyroidism, unspecified; M62.838 Other muscle spasm; J41.0 Simple chronic bronchitis; G47.33 Obstructive sleep apnea (adult) (pediatric); G47.34 Idiopathic sleep related nonobstructive alveolar hypoventilation; E11.42 Type 2 diabetes mellitus with diabetic polyneuropathy; Z79.4 Long term (current) use of insulin | CPT/HCPCS: 80053; 80061; 83036; 83880; 84443; 85025 ==

== ENCOUNTER → 2024-07-17 13:00 | Outpatient (BNVA) | payer MEDICARE, SELFPAY | PROVIDERS: PCP Family Medicine; Visit Provider Internal Medicine Rheumatology | DX: M15.9 Polyosteoarthritis, unspecified (principal); Z79.899 Other long term (current) drug therapy; Z71.85 Encounter for immunization safety counseling | CPT/HCPCS: 99214 ==

== ENCOUNTER 2024-08-27 15:20 | Emergency (ER) | payer MEDICARE, SELFPAY ==
[2024-08-27] VITALS (33 sets, daily range): BP systolic 126–158; BP diastolic 68–108; PULSE 59–72; RESP 16; TEMP 36.4; O2SAT 93–96; BMI 32.8
--- NOTE | 2024-08-27 16:59 | XRR_ITS ---
PROCEDURE INFORMATION: Exam: XR Chest Exam date and time: 08/27/2024 5:07 PM Age: 68 years old Clinical indication: Cough; Additional info: Cough, dizzy TECHNIQUE: Imaging protocol: Radiologic exam of the chest. Views: 1 view. COMPARISON: CT lung screening [id number] 05/10/2023 12:23 PM FINDINGS: Lungs: Visualized lung bases are unremarkable. There is no focal lung consolidation. A right upper lobe soft tissue nodule seen on prior CT of the thorax from 05/10/2023 is not visualized. Pleural spaces: There are no pleural effusions or pneumothorax. Heart/Mediastinum: Heart is normal in size. Bones/joints: Visualized osseous structures are unremarkable. XR/XR chest 1V portable [id number] IMPRESSION: Unremarkable chest radiograph
--- NOTE | 2024-08-27 16:59 | CTR_ITS ---
PROCEDURE INFORMATION: Exam: CT Head Without Contrast Exam date and time: 08/27/2024 4:10 PM Age: 68 years old Clinical indication: Pain; Dizziness; Headache not specified; Additional info: Dizziness, headache TECHNIQUE: Imaging protocol: Computed tomography of the head without contrast. Radiation optimization: All CT scans at this facility use at least one of these dose optimization techniques: automated exposure control; mA and/or kV adjustment per patient size (includes targeted exams where dose is matched to clinical indication); or iterative reconstruction. COMPARISON: CT head wo con* [id number] 08/26/2022 5:28 PM RADIATION DOSE METRICS: Total DLP (mGy-cm): 1076.58 FINDINGS: Brain: Mild atrophy. No hemorrhage. Mild small vessel ischemic changes.. No mass effect. Cerebral ventricles: No ventriculomegaly. Paranasal sinuses: Visualized sinuses are unremarkable. No fluid levels. Mastoid air cells: Visualized mastoid air cells are well aerated. Bones: Unremarkable. No acute fracture. Soft tissues: Unremarkable. CT/CT head wo con* [id number] IMPRESSION: 1. Mild atrophy and small-vessel ischemic changes. 2. If symptoms persist, further evaluation with MRI of the brain would be of benefit.
--- NOTE | 2024-08-27 17:13 | ECG_ITS ---
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1955 Requested By: Latasha Guadalupe Order Number: [id number] Reading MD: DAYAN MALONEY Measurements Intervals [place] Rate: 53 P: 0 SD: 0 QRS: -23 QRSD: 80 T: -14 QT: 408 QTc: 386 Interpretive Statements ATRIAL FIBRILLATION WITH SLOW VENTRICULAR RESPONSE BORDERLINE LEFT AXIS DEVIATION [QRS AXIS < -20] LOW QRS VOLTAGE IN PRECORDIAL LEADS [QRS DEFLECTION < 1.0 mV IN CHEST LEADS] ABNORMAL RHYTHM ECG Compared to ECG 07/26/2023 12:39:47 Sinus bradycardia no longer present T-wave abnormality no longer present Possible ischemia no longer present Electronically Signed On 08-28-2024 22:14:56 CDT by DAYAN MALONEY [email or web address]
[2024-08-27] MEDS: meclizine 25 mg tablet PO (17:38)
[2024-08-27 17:41] LABS: Basophils # 0.1 10^3/uL (0.0-0.1); Basophils % 0.7 %; Eosinophils # 0.1 10^3/uL (0.0-0.8); Hematocrit 42.9 % (36-47); Lymphocytes # 3.5 10^3/uL (0.8-4.8); Lymphocytes % 35.1 %; Mean Corpuscular HGB Conc 31.9 g/dL (30-55); Mean Corpuscular Hemoglobin 29.6 pg (27-33); Mean Corpuscular Volume 92.7 fl (85-98); Mean Platelet Volume 9.7 fL (7.4-10.4); Monocytes # 1.3 10^3/uL (0.2-0.9); Monocytes % 12.7 %; Neutrophils # 4.96 10^3/uL (1.8-7.7); Neutrophils % 50.2 %; Nucleated Red Blood Cells % 0 %; Platelet Count 222 10^3/cmm (157-399); Red Blood Count 4.63 10^6/uL (3.85-5.65); White Blood Count 9.89 10^3/uL (3.29-11.43)
[2024-08-27 17:47] LABS: Bilirubin Urine Negative (Negative); Blood Urine Negative (Negative); Glucose Urine UA Negative (Normal); Ketones Urine Negative (Negative); Leukocyte Esterase Urine 1+ (Negative); Nitrate Urine Negative (Negative); Protein Urine Negative (Negative); Specific Gravity, Urine 1.021 (1.005-1.030); Urine Appearance Clear (CLEAR); Urine Color Yellow (Yellow)
[2024-08-27 17:51] LABS: Alanine Aminotransferase 11 U/L (0-33); Albumin Level 4.3 g/dL (3.5-5.2); Alkaline Phosphatase 64 U/L (35-105); Anion Gap 15.1 (5-19); Aspartate Amino Transferase 12 U/L (0-32); Blood Urea Nitrogen 15 mg/dL (8-23); Calcium 9.6 mg/dL (8.5-10.5); Carbon Dioxide 28 mmol/L (22-29); Chloride 99 mmol/L (98-107); Creatinine Clr Calc Pharmacy 69.0689; Globulin 2.2 g/dL (1.3-4.6); Glomerular Filtration Rate 71.3 mL/min (90-130); Glucose 90 mg/dL (65-115); Osmolality Calculated 286 mOsm/kg (285-295); Potassium 4.1 mmol/L (3.5-5.1); Sodium 138 mmol/L (136-145); Total Bilirubin 0.2 mg/dL (0.15-1.2); Total Protein 6.5 g/dL (6.6-8.7)
[2024-08-27 17:52] LABS: Add Urine Microscopic? YES; Bacteria Urine None Seen /hpf; Hyaline Casts Urine 2.46 /lpf; RBC Urine 0-2 /hpf (0-2); Squamous Epithelial Cell Urine 0-5 /hpf (0-5)
[2024-08-27 17:53] LABS: Troponin(5th) Baseline 15 ng/L (0-10)
--- NOTE | 2024-08-27 18:08 | W.ED.DIZZY ---
Documented by User: Latasha Claudio MD 08/31/24 16:10 HPI - Dizziness General: Chief Complaint: Dizziness Stated Complaint: dizzy, light headed, nausea Time Seen by Provider: 08/27/24 16:43 History of Present Illness: HPI Narrative: This patient is a 68 year old presenting with dizziness that began upon awakening yesterday morning. She has had constant symptoms that are worse with standing - but don't resolve with laying down. She has a slight headache across her forehead. She has had episodes of feeling faint before and says this is different. She has not had symptoms like this before. She denies recent illness. She has had blurry vision with this as well - denies visual field loss or diplopia. She has had some mild nausea today. She has a history of RA and started humira about 6 weeks ago. No other new or different medications. She is diabetic and has hypertension. She denies chest pain or shortness of breath. She is a smoker and has a chronic cough. Related Data Home Medications ?Medication ?Instructions ?Recorded ?Confirmed aspirin 81 mg tablet,delayed 81 mg PO DAILY 06/23/19 07/17/24 release cholecalciferol (vitamin D3) 25 125 mcg PO DIRECTED 06/23/19 07/17/24 mcg (1,000 unit) tablet melatonin 5 mg capsule 5 mg PO DAILY PRN Sleep 06/23/19 07/17/24 nitroglycerin 0.4 mg sublingual 0.4 mg sublingual Q5M PRN Chest 06/23/19 07/17/24 tablet (Nitrostat) Pain vitamin B complex-vitamin B12 1 drp sublingual DAILY PRN 06/23/19 07/17/24 1,200 mcg/mL sublingual drops exhaustion krill oil 500 mg capsule 500 mg PO DAILY 11/03/21 07/17/24 Marijuana 05/18/22 07/17/24 Tylenol 1,000 mg PO TID 06/19/22 07/17/24 Previous Rx's ?Medication ?Instructions ?Recorded blood sugar diagnostic (OneTouch #100 ea 05/27/22 Verio test strips) miscellaneous medical supply See Rx Instructions miscellaneous 07/13/23 .COMPLEX #1 ea pen needle, diabetic 31 gauge x #100 ea 08/17/2311/03 (Comfort EZ Pen [place]) insulin glargine 100 unit/mL (3 75 unit (0.75 mL) SUBCUT QAM 30 10/04/23 mL) subcutaneous pen (agl days #24 mL KwikPen U-100 Insulin) albuterol sulfate 2.5 mg/3 mL 2.5 mg (3 mL) inhalation Q6H PRN 07/03/24 (0.083 %) solution for nebulization Shortness Of Breath #180 mL albuterol sulfate 90 mcg/actuation See Rx Instructions .Route 07/03/24 aerosol inhaler .COMPLEX #18 grams atorvastatin 20 mg tablet 20 mg PO QPM 90 days #90 tabs 07/03/24 budesonide-formoterol HFA 160 2 puff inhalation BID 30 days 07/03/24 mcg-4.5 mcg/actuation aerosol #10.2 grams inhaler (Symbicort) clonidine HCl 0.2 mg tablet 0.2 mg PO BID 90 days #180 tabs 07/03/24 duloxetine 20 mg capsule,delayed 20 mg PO BID 90 days #180 caps 07/03/24 release furosemide 20 mg tablet See Rx Instructions .Route 07/03/24 .COMPLEX #90 tabs gabapentin 400 mg capsule 400 mg PO BID PRN pain 90 days 07/03/24 #180 caps levothyroxine 150 mcg tablet 150 mcg PO DAILY 90 days #90 tabs 07/03/24 lisinopril 20 1 tab PO DAILY 90 days #90 tabs 07/03/24 mg-hydrochlorothiazide 25 mg tablet metoprolol tartrate 25 mg tablet See Rx Instructions .Route 07/03/24 .COMPLEX #180 tabs pantoprazole 40 mg tablet,delayed 40 mg PO BID 90 days #180 tabs 07/03/24 release (Protonix) tizanidine 4 mg tablet 4 mg PO BID muscle spasticity 90 07/03/24 days #180 tabs adalimumab 40 mg/0.8 mL 40 mg (0.8 mL) SUBCUT Q14D #2 ea 07/17/24 subcutaneous pen kit (Humira Pen) hydroxychloroquine 200 mg tablet 200 mg PO DAILY #90 tabs 07/17/24 tramadol 50 mg tablet 50 mg PO TID PRN pain (scale score 07/17/24 7-10) #60 tabs fluticasone propionate 50 See Rx Instructions .Route 07/26/24 mcg/actuation nasal .COMPLEX #16 grams spray,suspension meclizine 25 mg tablet 25 mg PO TID PRN dizziness #60 tabs 08/27/24 Allergies Allergy/AdvReac Type Severity Reaction Status Date / Time methotrexate Allergy Unknown hair fall Verified 07/17/24 13:26 pregabalin (From Lyrica) Allergy Unknown Verified 07/17/24 13:26 codeine AdvReac Intermediate nausea Verified 07/17/24 16:28 leflunomide AdvReac Intermediate abdominal Verified 07/17/24 13:26 pain/nausea sulfasalazine AdvReac Intermediate ADR-Nausea Verified 07/17/24 13:29 and blood sugar issues PFSH ED PFSH: Medical History Immunization counseling High risk medication use Osteoarthritis, generalized Inflammatory arthritis Elevated white blood cell count, unspecified Other elevated white blood cell count Allergic rhinitis Chronic pain syndrome Muscle spasm Insomnia COPD (chronic obstructive pulmonary disease) CHF (congestive heart failure) Diabetes Hypothyroidism GERD (gastroesophageal reflux disease) Neuropathy PILAR (generalized anxiety disorder) Benign essential hypertension Coronary artery disease Hyperlipidemia Primary osteoarthritis of both knees Intrahepatic bile duct dilation Surgical History History of cholecystectomy History of tubal ligation History of hysterectomy Family History Father Hypertension Myocardial infarction Cancer Colon Brother Hypertension Diabetes Mother Hypertension Myocardial infarction Cancer Breast Sister Hypertension Brother Myocardial infarction Cancer Colon Family/Other Cancer Aunt 2x Breast Other Stroke Social History Smoking and tobacco/nicotine status: current every day tobacco/nicotine user cigarettes Packs smoked per day: 1.5 Years cigarettes smoked: 50 [ Other cigarette details: Started at age 17] Quit status (tobacco/nicotine): not considering quitting Second hand smoke exposure: Yes Alcohol intake: current Substance/Drug Use: current Substance/Drug use frequency: daily Other substance/drug use details: Marijuana card Sexually active: No Do you think of yourself as: Straight/Heterosexual Current gender identity: Female Female Reproductive History: Spontaneous abortions: No Physical Exam Const: COMMON NORMALS: no acute distress, patient oriented x3, no limitations and alert GENERAL APPEARANCE: cooperative and comfortable HENMT: HEAD & SCALP: normal to inspection FACE & SINUS: normal facial exam Eye: GENERAL EYE: appearance normal, both eyes and all related structures Neck/C-Spine: COMMON NORMALS: supple, no meningeal signs and no JVD Chest: COMMONS NORMALS: normal inspection of the chest Resp: COMMON NORMALS: normal respiratory effort, No use of accessory muscles and clear to auscultation bilaterally AUSCULTATION: clear to auscultation bilaterally Cardio: COMMON NORMALS: no JVD, regular rate, regular rhythm and No murmurs present (Cardio) RATE: regular rate RHYTHM: regular rhythm GI: COMMON NORMALS: Normal to inspection, nondistended, normoactive bowel sounds present, Soft to palpation and non-tender INSPECTION: Yes normal to inspection AUSCULTATION: Yes normoactive bowel sounds PALPATION: Yes Soft to palpation Back/Pelvis: COMMON NORMALS: thoracic and lumbar spine normal to inspection Extremity: COMMON NORMALS: normal to inspection Neuro: COMMON NORMALS: patient oriented x3, moves all extremities, no focal motor deficits and no sensory deficits noted SENSORIUM/ORIENTATION: Yes alert MENINGEAL SIGNS: Yes no meningeal signs COORDINATION/BALANCE: [id number] test normal and [id number] test normal (limited by joint pain in lower limbs) COORDINATION: [id number] test normal and [id number]-[id number] test normal (limited by joint pain in lower limbs) Psych: COMMON NORMALS: mental status grossly normal, cooperative and normal affect Skin: COMMON NORMALS: no rashes or lesions noted and turgor normal GENERAL SKIN EXAM: no rashes or lesions noted and turgor normal Course Vital Signs: Vital signs: Vital Signs Temperature 97.6 F 08/27/24 15:31 Pulse Rate 59 L 08/27/24 21:30 Respiratory Rate 16 08/27/24 21:30 Blood Pressure 155/80 08/27/24 21:30 Pulse Oximetry 93 08/27/24 21:30 Oxygen Delivery Me thod Room Air 08/27/24 15:31 MDM - Dizziness Medical Decision Making Patient with persistent vertiginous symptoms since yesterday morning. She has multiple risk factors for stroke. She wonders if the recently started Humira might be causing this but I think a vascular issue might be more likely. This could also be benign vertigo but with her history she probably needs a good stroke work up with might include an MRI. Lab Data 08/27/24 17:27 08/27/24 17:27 Radiology Impressions Chest X-Ray 08/27/24 16:59 IMPRESSION: Unremarkable chest radiograph Head CT 08/27/24 16:59 IMPRESSION: 1. Mild atrophy and small-vessel ischemic changes. 2. If symptoms persist, further evaluation with MRI of the brain would be of benefit. Laboratory Results WBC 9.89 10^3/uL (3.29-11.43) 08/27/24 17:27 RBC 4.63 10^6/uL (3.85-5.65) 08/27/24 17:27 Hgb 13.70 g/dL (11.27-16.99) 08/27/24 17:27 Hct 42.9 % (36-47) 08/27/24 17:27 MCV 92.7 fl (85-98) 08/27/24 17:27 MCH 29.6 pg (27-33) 08/27/24 17:27 MCHC 31.9 g/dL (30-55) 08/27/24 17:27 RDW 14.0 % (12.1-15.1) 08/27/24 17:27 Plt Count 222 10^3/cmm (157-399) 08/27/24 17:27 MPV 9.7 fL (7.4-10.4) 08/27/24 17:27 Neut % (Auto) 50.2 % 08/27/24 17:27 Lymph % (Auto) 35.1 % 08/27/24 17:27 [place] % (Auto) 12.7 % 08/27/24 17:27 Eos % (Auto) 1.0 % 08/27/24 17:27 Baso % (Auto) 0.7 % 08/27/24 17:27 Neut # (Auto) 4.96 10^3/uL (1.8-7.7) 08/27/24 17:27 Lymph # (Auto) 3.5 10^3/uL (0.8-4.8) 08/27/24 17:27 [place] # (Auto) 1.3 10^3/uL (0.2-0.9) H 08/27/24 17:27 Eos # (Auto) 0.1 10^3/uL (0.0-0.8) 08/27/24 17:27 Baso # (Auto) 0.1 10^3/uL (0.0-0.1) 08/27/24 17:27 Nucleated RBC % (auto) 0 % 08/27/24 17:27 Nucleated RBCs # 0.0 /100WBC 08/27/24 17:27 Sodium 138 mmol/L (136-145) 08/27/24 17:27 Potassium 4.1 mmol/L (3.5-5.1) 08/27/24 17:27 Chloride 99 mmol/L (98-107) 08/27/24 17:27 Carbon Dioxide 28 mmol/L (22-29) 08/27/24 17:27 Anion Gap 15.1 (5-19) 08/27/24 17:27 BUN 15 mg/dL (8-23) 08/27/24 17:27 Creatinine 0.8 mg/dL (0.5-0.9) 08/27/24 17:27 GFR Calculation 71.3 mL/min (90-130) L 08/27/24 17:27 Glucose 90 mg/dL (65-115) 08/27/24 17:27 Calculated Osmolality 286 mOsm/kg (285-295) 08/27/24 17:27 Calcium 9.6 mg/dL (8.5-10.5) 08/27/24 17:27 Total Bilirubin 0.2 mg/dL (0.15-1.2) 08/27/24 17:27 AST 12 U/L (0-32) 08/27/24 17:27 ALT 11 U/L (0-33) 08/27/24 17:27 Alkaline Phosphatase 64 U/L (35-105) 08/27/24 17:27 Troponin T Baseline 15 ng/L (0-10) H 08/27/24 17:27 Troponin T 120 Minute 15.63 ng/L (0-10) H 08/27/24 19:23 Delta Troponin T 0.63 ABS# (0-10) 08/27/24 19:23 Total Protein 6.5 g/dL (6.6-8.7) L 08/27/24 17:27 Albumin 4.3 g/dL (3.5-5.2) 08/27/24 17:27 Globulin 2.2 g/dL (1.3-4.6) 08/27/24 17:27 Urine Color Yellow (Yellow) 08/27/24 17:37 Urine Appearance Clear (CLEAR) 08/27/24 17:37 Urine pH 7.0 (5-7) 08/27/24 17:37 Ur Specific Bearden 1.021 (1.005-1.030) 08/27/24 17:37 Urine Protein Negative (Negative) 08/27/24 17:37 Urine Glucose (UA) Negative (Normal) 08/27/24 17:37 Urine Ketones Negative (Negative) 08/27/24 17:37 Urine Blood Negative (Negative) 08/27/24 17:37 Urine Nitrate Negative (Negative) 08/27/24 17:37 Urine Bilirubin Negative (Negative) 08/27/24 17:37 Urine Urobilinogen 1.0 mg/dL (Negative) 08/27/24 17:37 Ur Leukocyte Esterase 1+ (Negative) A 08/27/24 17:37 Urine RBC 0-2 /hpf (0-2) 08/27/24 17:37 Urine WBC 6-10 /hpf (0-5) 08/27/24 17:37 Ur Squamous Epith Cells 0-5 /hpf (0-5) 08/27/24 17:37 Amorphous Sediment Not Reportable 08/27/24 17:37 Urine Bacteria None seen /hpf (NONE) 08/27/24 17:37 Hyaline Casts 2.46 /lpf 08/27/24 17:37 Influenza A (PCR) Negative (Negative) 08/27/24 17:27 Influenza Type B (PCR) Negative (Negative) 08/27/24 17:27 RSV (PCR) Negative (Negative) 08/27/24 17:27 SARS-CoV-2 (PCR) Negative (Negative) 08/27/24 17:27 Discharge Plan Discharge Patient Disposition: Home Clinical Impression: Vertigo Condition: Stable Prescriptions: New meclizine 25 mg tablet 25 mg PO TID PRN (Reason: dizziness) Qty: 60 0RF No Action nitroglycerin [Nitrostat] 0.4 mg tablet, sublingual 0.4 mg SUBLINGUAL Q5M PRN (Reason: Chest Pain) cholecalciferol (vitamin D3) 25 mcg (1,000 unit) tablet 125 mcg PO DIRECTED Rx Instructions: Every and Frid vitamin B complex-vit B12 1,200 mcg/mL drops 1 drp SUBLINGUAL DAILY PRN (Reason: exhaustion) Rx Instructions: 1 mL sublingual once; aspirin 81 mg tablet,delayed release (DR/EC) 81 mg PO DAILY melatonin 5 mg capsule 5 mg PO DAILY PRN (Reason: Sleep) krill oil 500 mg capsule 500 mg PO DAILY (DME) Marijuana 0 .Route .MEDSUPPLY Patient Comments: Darron. Pt has medical card Humira Pen 40 mg/0.8 mL pen injector kit 40 mg SUBCUT Q14D Qty: 2 5RF hydroxychloroquine 200 mg tablet 200 mg PO DAILY Qty: 90 1RF tramadol 50 mg tablet 50 mg PO TID PRN (Reason: pain (scale score 7-10)) Qty: 60 1RF miscellaneous medical supply Misc See Rx Instructions miscellaneous .COMPLEX Qty: 1 0RF Rx Instructions: manual wheelchair as directed; insulin glargine [Basaglar KwikPen U-100 Insulin] 100 unit/mL (3 mL) insulin pen 75 unit SUBCUT QAM 30 Days Qty: 24 5RF Protonix 40 mg tablet,delayed release (DR/EC) 40 mg PO BID 90 Days Qty: 180 2RF albuterol sulfate 90 mcg/actuation HFA aerosol inhaler See Rx Instructions .ROUTE .COMPLEX Qty: 18 5RF Dose Instruction: INHALE 2 PUFF(S) BY MOUTH EVERY 6 HOURS NEEDED FOR SHORTNESS OF BREATH OR WHEEZING Rx Instructions: INHALE 2 PUFF(S) BY MOUTH EVERY 6 HOURS NEEDED FOR SHORTNESS OF BREATH OR WHEEZING atorvastatin 20 mg tablet 20 mg PO QPM 90 Days Qty: 90 3RF Rx Instructions: TAKE ONE TABLET BY MOUTH EVERY EVENING Symbicort 160-4.5 mcg/actuation HFA aerosol inhaler 2 puff inhalation BID 30 Days Qty: 10.2 5RF Rx Instructions: 2 PUFFS BY INHALATION TWICE A DAY clonidine HCl 0.2 mg tablet 0.2 mg PO BID 90 Days Qty: 180 2RF duloxetine 20 mg capsule,delayed release(DR/EC) 20 mg PO BID 90 Days Qty: 180 2RF furosemide 20 mg tablet See Rx Instructions .ROUTE .COMPLEX Qty: 90 2RF Dose Instruction: TAKE ONE TABLET BY MOUTH EVERY MORNING Rx Instructions: TAKE ONE TABLET BY MOUTH EVERY MORNING gabapentin 400 mg capsule 400 mg PO BID PRN (Reason: pain) 90 Days Qty: 180 2RF levothyroxine 150 mcg tablet 150 mcg PO DAILY 90 Days Qty: 90 2RF lisinopril-hydrochlorothiazide 20-25 mg tablet 1 tab PO DAILY 90 Days Qty: 90 2RF metoprolol tartrate 25 mg tablet See Rx Instructions .ROUTE .COMPLEX Qty: 180 2RF Dose Instruction: TAKE ONE TABLET BY MOUTH TWICE A DAY FOR 90 DAYS Rx Instructions: TAKE ONE TABLET BY MOUTH TWICE A DAY FOR 90 DAYS tizanidine 4 mg tablet 4 mg PO BID 90 Days Qty: 180 2RF albuterol sulfate 2.5 mg /3 mL (0.083 %) solution for nebulization 2.5 mg INHALATION Q6H PRN (Reason: Shortness Of Breath) Qty: 180 2RF (DME) OneTouch Verio test strips Strip See Rx Instructions .ROUTE .MEDSUPPLY Qty: 100 12RF Rx Instructions: one strip three times daily (DME) pen needle, diabetic [Comfort EZ Pen [place]] 31 gauge x 5/16 needle See Rx Instructions .ROUTE .MEDSUPPLY Qty: 100 12RF Rx Instructions: As directed with insulin fluticasone propionate 50 mcg/actuation spray,suspension See Rx Instructions .ROUTE .COMPLEX Qty: 16 0RF Dose Instruction: 1 SPRAY INTRANASALLY TWICE A DAY NEEDED FOR ALLERGY SYMPTOMS INTO EACH NOSTRIL Rx Instructions: 1 SPRAY INTRANASALLY TWICE A DAY NEEDED FOR ALLERGY SYMPTOMS INTO EACH NOSTRIL Tylenol 1,000 mg PO TID Discharge Orders: Discharge ED (Routine); Ordered 08/27/24 Ordered By: Sanket Angel Referrals: Nataliia Murphy MD [Primary Care Provider] - 1-3 days Patient Instructions: Vertigo (ED), Opioid Safety, Pain Management Activity Restrictions/Additional Instructions: Medication as directed. Return for worsening dizziness despite treatment, language problems, vision problems, significant weakness, other concerning symptoms. Call your doctor tomorrow for follow-up appointment. 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 Documented by User: Sanket Angel, DO 08/28/24 05:57 HPI - Dizziness General: Chief Complaint: Dizziness Stated Complaint: dizzy, light headed, nausea Time Seen by Provider: 08/27/24 16:43 Related Data Home Medications ?Medication ?Instructions ?Recorded ?Confirmed aspirin 81 mg tablet,delayed 81 mg PO DAILY 06/23/19 07/17/24 release cholecalciferol (vitamin D3) 25 125 mcg PO DIRECTED 06/23/19 07/17/24 mcg (1,000 unit) tablet melatonin 5 mg capsule 5 mg PO DAILY PRN Sleep 06/23/19 07/17/24 nitroglycerin 0.4 mg sublingual 0.4 mg sublingual Q5M PRN Chest 06/23/19 07/17/24 tablet (Nitrostat) Pain vitamin B complex-vitamin B12 1 drp sublingual DAILY PRN 06/23/19 07/17/24 1,200 mcg/mL sublingual drops exhaustion krill oil 500 mg capsule 500 mg PO DAILY 11/03/21 07/17/24 Marijuana 05/18/22 07/17/24 Tylenol 1,000 mg PO TID 06/19/22 07/17/24 Previous Rx's ?Medication ?Instructions ?Recorded blood sugar diagnostic (OneTouch #100 ea 05/27/22 Verio test strips) miscellaneous medical supply See Rx Instructions miscellaneous 07/13/23 .COMPLEX #1 ea pen needle, diabetic 31 gauge x #100 ea 08/17/23 5/16 (Comfort EZ Pen [place]) insulin glargine 100 unit/mL (3 75 unit (0.75 mL) SUBCUT QAM 30 10/04/23 mL) subcutaneous pen (Basaglar days #24 mL KwikPen U-100 Insulin) albuterol sulfate 2.5 mg/3 mL 2.5 mg (3 mL) inhalation Q6H PRN 07/03/24 (0.083 %) solution for nebulization Shortness Of Breath #180 mL albuterol sulfate 90 mcg/actuation See Rx Instructions .Route 07/03/24 aerosol inhaler .COMPLEX #18 grams atorvastatin 20 mg tablet 20 mg PO QPM 90 days #90 tabs 07/03/24 budesonide-formoterol HFA 160 2 puff inhalation BID 30 days 07/03/24 mcg-4.5 mcg/actuation aerosol #10.2 grams inhaler (Symbicort) clonidine HCl 0.2 mg tablet 0.2 mg PO BID 90 days #180 tabs 07/03/24 duloxetine 20 mg capsule,delayed 20 mg PO BID 90 days #180 caps 07/03/24 release furosemide 20 mg tablet See Rx Instructions .Route 07/03/24 .COMPLEX #90 tabs gabapentin 400 mg capsule 400 mg PO BID PRN pain 90 days 07/03/24 #180 caps levothyroxine 150 mcg tablet 150 mcg PO DAILY 90 days #90 tabs 07/03/24 lisinopril 20 1 tab PO DAILY 90 days #90 tabs 07/03/24 mg-hydrochlorothiazide 25 mg tablet metoprolol tartrate 25 mg tablet See Rx Instructions .Route 07/03/24 .COMPLEX #180 tabs pantoprazole 40 mg tablet,delayed 40 mg PO BID 90 days #180 tabs 07/03/24 release (Protonix) tizanidine 4 mg tablet 4 mg PO BID muscle spasticity 90 07/03/24 days #180 tabs adalimumab 40 mg/0.8 mL 40 mg (0.8 mL) SUBCUT Q14D #2 ea 07/17/24 subcutaneous pen kit (Humira Pen) hydroxychloroquine 200 mg tablet 200 mg PO DAILY #90 tabs 07/17/24 tramadol 50 mg tablet 50 mg PO TID PRN pain (scale score 07/17/24 7-10) #60 tabs fluticasone propionate 50 See Rx Instructions .Route 07/26/24 mcg/actuation nasal .COMPLEX #16 grams spray,suspension meclizine 25 mg tablet 25 mg PO TID PRN dizziness #60 tabs 08/27/24 Allergies Allergy/AdvReac Type Severity Reaction Status Date / Time methotrexate Allergy Unknown hair fall Verified 07/17/24 13:26 pregabalin (From Lyrica) Allergy Unknown Verified 07/17/24 13:26 codeine AdvReac Intermediate nausea Verified 07/17/24 16:28 leflunomide AdvReac Intermediate abdominal Verified 07/17/24 13:26 pain/nausea sulfasalazine AdvReac Intermediate ADR-Nausea Verified 07/17/24 13:29 and blood sugar issues [facility] ED [facility]: Medical History Immunization counseling High risk medication use Osteoarthritis, generalized Inflammatory arthritis Elevated white blood cell count, unspecified Other elevated white blood cell count Allergic rhinitis Chronic pain syndrome Muscle spasm Insomnia COPD (chronic obstructive pulmonary disease) CHF (congestive heart failure) Diabetes Hypothyroidism GERD (gastroesophageal reflux disease) Neuropathy PILAR (generalized anxiety disorder) Benign essential hypertension Coronary artery disease Hyperlipidemia Primary osteoarthritis of both knees Intrahepatic bile duct dilation Surgical History History of cholecystectomy History of tubal ligation History of hysterectomy Family History Father Hypertension Myocardial infarction Cancer Colon Brother Hypertension Diabetes Mother Hypertension Myocardial infarction Cancer Breast Sister Hypertension Brother Myocardial infarction Cancer Colon Family/Other Cancer Aunt 2x Breast Other Stroke Social History Smoking and tobacco/nicotine status: current every day tobacco/nicotine user cigarettes Packs smoked per day: 1.5 Years cigarettes smoked: 50 [ Other cigarette details: Started at age 17] Quit status (tobacco/nicotine): not considering quitting Second hand smoke exposure: Yes Alcohol intake: current Substance/Drug Use: current Substance/Drug use frequency: daily Other substance/drug use details: Marijuana card Sexually active: No Do you think of yourself as: Straight/Heterosexual Current gender identity: Female Course Vital Signs: Vital signs: Vital Signs Temperature 97.6 F 08/27/24 15:31 Pulse Rate 59 L 08/27/24 21:30 Respiratory Rate 16 08/27/24 21:30 Blood Pressure 155/80 08/27/24 21:30 Pulse Oximetry 93 08/27/24 21:30 Oxygen Delivery Me thod Room Air 08/27/24 15:31 MDM - Dizziness Medical Decision Making Patient with persistent vertiginous symptoms since yesterday morning. She has multiple risk factors for stroke. She wonders if the recently started Humira might be causing this but I think a vascular issue might be more likely. This could also be benign vertigo but with her history she probably needs a good stroke work up with might include an MRI. Patient checked out to me at shift change. This lady is feeling much improved after meclizine. She is walked without significant help in the ER, and without significant dizziness. Admission was offered, but she would like to go home. Given the fact that she is out of the window for acute stroke treatment, she will be allowed to be discharged home. She knows to return for any change in her symptoms. Lab Data 08/27/24 17:27 08/27/24 17:27 Radiology Impressions Chest X-Ray 08/27/24 16:59 IMPRESSION: Unremarkable chest radiograph Head CT 08/27/24 16:59 IMPRESSION: 1. Mild atrophy and small-vessel ischemic changes. 2. If symptoms persist, further evaluation with MRI of the brain would be of benefit. Laboratory Results WBC 9.89 10^3/uL (3.29-11.43) 08/27/24 17: RBC 4.63 10^6/uL (3.85-5.65) 08/27/24 17:27 Hgb 13.70 g/dL (11.27-16.99) 08/27/24 17:27 Hct 42.9 % (36-47) 08/27/24 17:27 MCV 92.7 fl (85-98) 08/27/24 17: MCH 29.6 pg (27-33) 08/27/24 17: MCHC 31.9 g/dL (30-55) 08/27/24 17:27 RDW 14.0 % (12.1-15.1) 08/27/24 17:27 Plt Count 222 10^3/cmm (157-399) 08/27/24 17: MPV 9.7 fL (7.4-10.4) 08/27/24 17:27 Neut % (Auto) 50.2 % 08/27/24 17:27 Lymph % (Auto) 35.1 % 08/27/24 17:27 [place] % (Auto) 12.7 % 08/27/24 17:27 Eos % (Auto) 1.0 % 08/27/24 17:27 Baso % (Auto) 0.7 % 08/27/24 17:27 Neut # (Auto) 4.96 10^3/uL (1.8-7.7) 08/27/24 17:27 Lymph # (Auto) 3.5 10^3/uL (0.8-4.8) 08/27/24 17:27 [place] # (Auto) 1.3 10^3/uL (0.2-0.9) H 08/27/24 17:27 Eos # (Auto) 0.1 10^3/uL (0.0-0.8) 08/27/24 17:27 Baso # (Auto) 0.1 10^3/uL (0.0-0.1) 08/27/24 17:27 Nucleated RBC % (auto) 0 % 08/27/24 17:27 Nucleated RBCs # 0.0 /100WBC 08/27/24 17:27 Sodium 138 mmol/L (136-145) 08/27/24 17: Potassium 4.1 mmol/L (3.5-5.1) 08/27/24 17:27 Chloride 99 mmol/L (98-107) 08/27/24 17:27 Carbon Dioxide 28 mmol/L (22-29) 08/27/24 17:27 Anion Gap 15.1 (5-19) 08/27/24 17:27 BUN 15 mg/dL (8-23) 08/27/24 17:27 Creatinine 0.8 mg/dL (0.5-0.9) 08/27/24 17:27 GFR Calculation 71.3 mL/min (90-130) L 08/27/24 17:27 Glucose 90 mg/dL (65-115) 08/27/24 17:27 Calculated Osmolality 286 mOsm/kg (285-295) 08/27/24 17:27 Calcium 9.6 mg/dL (8.5-10.5) 08/27/24 17:27 Total Bilirubin 0.2 mg/dL (0.15-1.2) 08/27/24 17:27 AST 12 U/L (0-32) 08/27/24 17:27 ALT 11 U/L (0-33) 08/27/24 17:27 Alkaline Phosphatase 64 U/L (35-105) 08/27/24 17:27 Troponin T Baseline 15 ng/L (0-10) H 08/27/24 17:27 Troponin T 120 Minute 15.63 ng/L (0-10) H 08/27/24 19:23 Delta Troponin T 0.63 ABS# (0-10) 08/27/24 19:23 Total Protein 6.5 g/dL (6.6-8.7) L 08/27/24 17:27 Albumin 4.3 g/dL (3.5-5.2) 08/27/24 17:27 Globulin 2.2 g/dL (1.3-4.6) 08/27/24 17:27 Urine Color Yellow (Yellow) 08/27/24 17:37 Urine Appearance Clear (CLEAR) 08/27/24 17:37 Urine pH 7.0 (5-7) 08/27/24 17:37 Ur Specific [place] 1.021 (1.005-1.030) 08/27/24 17:37 Urine Protein Negative (Negative) 08/27/24 17:37 Urine Glucose (UA) Negative (Normal) 08/27/24 17:37 Urine Ketones Negative (Negative) 08/27/24 17:37 Urine Blood Negative (Negative) 08/27/24 17:37 Urine Nitrate Negative (Negative) 08/27/24 17:37 Urine Bilirubin Negative (Negative) 08/27/24 17:37 Urine Urobilinogen 1.0 mg/dL (Negative) 08/27/24 17:37 Ur Leukocyte Esterase 1+ (Negative) A 08/27/24 17:37 Urine RBC 0-2 /hpf (0-2) 08/27/24 17:37 Urine WBC 6-10 /hpf (0-5) 08/27/24 17:37 Ur Squamous Epith Cells 0-5 /hpf (0-5) 08/27/24 17:37 Amorphous Sediment Not Reportable 08/27/24 17:37 Urine Bacteria None seen /hpf (NONE) 08/27/24 17:37 Hyaline Casts 2.46 /lpf 08/27/24 17:37 Influenza A (PCR) Negative (Negative) 08/27/24 17:27 Influenza Type B (PCR) Negative (Negative) 08/27/24 17:27 RSV (PCR) Negative (Negative) 08/27/24 17:27 SARS-CoV-2 (PCR) Negative (Negative) 08/27/24 17:27 All radiology interpretation(s) finalized by discharge Discharge Plan Discharge Patient Disposition: Home Clinical Impression: Vertigo Condition: Stable Prescriptions: New meclizine 25 mg tablet 25 mg PO TID PRN (Reason: dizziness) Qty: 60 0RF No Action nitroglycerin [Nitrostat] 0.4 mg tablet, sublingual 0.4 mg SUBLINGUAL Q5M PRN (Reason: Chest Pain) cholecalciferol (vitamin D3) 25 mcg (1,000 unit) tablet 125 mcg PO DIRECTED Rx Instructions: Every Th and Frid vitamin B complex-vit B12 1,200 mcg/mL drops 1 drp SUBLINGUAL DAILY PRN (Reason: exhaustion) Rx Instructions: 1 mL sublingual once; aspirin 81 mg tablet,delayed release (DR/EC) 81 mg PO DAILY melatonin 5 mg capsule 5 mg PO DAILY PRN (Reason: Sleep) krill oil 500 mg capsule 500 mg PO DAILY (DME) Marijuana 0 .Route .MEDSUPPLY Patient Comments: Darron. Pt has medical card Humira Pen 40 mg/0.8 mL pen injector kit 40 mg SUBCUT Q14D Qty: 2 5RF hydroxychloroquine 200 mg tablet 200 mg PO DAILY Qty: 90 1RF tramadol 50 mg tablet 50 mg PO TID PRN (Reason: pain (scale score 7-10)) Qty: 60 1RF miscellaneous medical supply Misc See Rx Instructions miscellaneous .COMPLEX Qty: 1 0RF Rx Instructions: manual wheelchair as directed; insulin glargine [Basaglar KwikPen U-100 Insulin] 100 unit/mL (3 mL) insulin pen 75 unit SUBCUT QAM 30 Days Qty: 24 5RF Protonix 40 mg tablet,delayed release (DR/EC) 40 mg PO BID 90 Days Qty: 180 2RF albuterol sulfate 90 mcg/actuation HFA aerosol inhaler See Rx Instructions .ROUTE .COMPLEX Qty: 18 5RF Dose Instruction: INHALE 2 PUFF(S) BY MOUTH EVERY 6 HOURS NEEDED FOR SHORTNESS OF BREATH OR WHEEZING Rx Instructions: INHALE 2 PUFF(S) BY MOUTH EVERY 6 HOURS NEEDED FOR SHORTNESS OF BREATH OR WHEEZING atorvastatin 20 mg tablet 20 mg PO QPM 90 Days Qty: 90 3RF Rx Instructions: TAKE ONE TABLET BY MOUTH EVERY EVENING Symbicort 160-4.5 mcg/actuation HFA aerosol inhaler 2 puff inhalation BID 30 Days Qty: 10.2 5RF Rx Instructions: 2 PUFFS BY INHALATION TWICE A DAY clonidine HCl 0.2 mg tablet 0.2 mg PO BID 90 Days Qty: 180 2RF duloxetine 20 mg capsule,delayed release(DR/EC) 20 mg PO BID 90 Days Qty: 180 2RF furosemide 20 mg tablet See Rx Instructions .ROUTE .COMPLEX Qty: 90 2RF Dose Instruction: TAKE ONE TABLET BY MOUTH EVERY MORNING Rx Instructions: TAKE ONE TABLET BY MOUTH EVERY MORNING gabapentin 400 mg capsule 400 mg PO BID PRN (Reason: pain) 90 Days Qty: 180 2RF levothyroxine 150 mcg tablet 150 mcg PO DAILY 90 Days Qty: 90 2RF lisinopril-hydrochlorothiazide 20-25 mg tablet 1 tab PO DAILY 90 Days Qty: 90 2RF metoprolol tartrate 25 mg tablet See Rx Instructions .ROUTE .COMPLEX Qty: 180 2RF Dose Instruction: TAKE ONE TABLET BY MOUTH TWICE A DAY FOR 90 DAYS Rx Instructions: TAKE ONE TABLET BY MOUTH TWICE A DAY FOR 90 DAYS tizanidine 4 mg tablet 4 mg PO BID 90 Days Qty: 180 2RF albuterol sulfate 2.5 mg /3 mL (0.083 %) solution for nebulization 2.5 mg INHALATION Q6H PRN (Reason: Shortness Of Breath) Qty: 180 2RF (DME) OneTouch Verio test strips Strip See Rx Instructions .ROUTE .MEDSUPPLY Qty: 100 12RF Rx Instructions: one strip three times daily (DME) pen needle, diabetic [Comfort EZ Pen [place]] 31 gauge x 5/16 needle See Rx Instructions .ROUTE .MEDSUPPLY Qty: 100 12RF Rx Instructions: As directed with insulin fluticasone propionate 50 mcg/actuation spray,suspension See Rx Instructions .ROUTE .COMPLEX Qty: 16 0RF Dose Instruction: 1 SPRAY INTRANASALLY TWICE A DAY NEEDED FOR ALLERGY SYMPTOMS INTO EACH NOSTRIL Rx Instructions: 1 SPRAY INTRANASALLY TWICE A DAY NEEDED FOR ALLERGY SYMPTOMS INTO EACH NOSTRIL Tylenol 1,000 mg PO TID Discharge Orders: Discharge ED (Routine); Ordered 08/27/24 Ordered By: Sanket Angel Referrals: Nataliia Murphy MD [Primary Care Provider] - 1-3 days Patient Instructions: Vertigo (ED), Opioid Safety, Pain Management Activity Restrictions/Additional Instructions: Medication as directed. Return for worsening dizziness despite treatment, language problems, vision problems, significant weakness, other concerning symptoms. Call your doctor tomorrow for follow-up appointment. 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
[2024-08-27 18:18] LABS: Influenza A NEGATIVE (Negative); Influenza B NEGATIVE (Negative); Respiratory Syncytial Virus Ce NEGATIVE (Negative); SARS-CoV-2 PCR NEGATIVE (Negative)
--- NOTE | 2024-08-27 18:38 | ECG_ITS ---
[employer] Test Date: 2024-08-27 Pat Name: Dee Barros Department: Room: Gender: Female Lead Military Analyst: : 1955 Requested By: Latasha Guadalupe Order Number: [id number] Reading MD: DAYAN MALONEY Measurements Intervals [place] Rate: 56 P: 38 LA: 171 QRS: 84 QRSD: 97 T: 48 QT: 425 QTc: 411 Interpretive Statements SINUS BRADYCARDIA LOW QRS VOLTAGE IN PRECORDIAL LEADS [QRS DEFLECTION < 1.0 mV IN CHEST LEADS] NONSPECIFIC T-WAVE ABNORMALITY Compared to ECG 08/27/2024 17:25:35 T-wave abnormality now present Atrial fibrillation no longer present Electronically Signed On 08-28-2024 22:22:15 CDT by DAAYN MALONEY [email or web address]
[2024-08-27 19:47] LABS: Troponin 5 2HR 15.63 ng/L (0-10); Troponin 5 2HR Delta 0.63 ABS# (0-10)
== END 2024-08-27 21:27 | disposition home or self-care (01) ==
PROVIDERS: Emergency Medicine; Emergency Provider Emergency Medicine; PCP Family Medicine
DX: R42 Dizziness and giddiness (principal); Z11.52 Encounter for screening for COVID-19; Z79.82 Long term (current) use of aspirin; F17.210 Nicotine dependence, cigarettes, uncomplicated; I25.10 Atherosclerotic heart disease of native coronary artery without angina pectoris; J44.9 Chronic obstructive pulmonary disease, unspecified; E78.5 Hyperlipidemia, unspecified; I50.9 Heart failure, unspecified; E11.9 Type 2 diabetes mellitus without complications
CPT/HCPCS: 36415; 70450; 71045; 80053; 81001; 84484; 85025; 87637; 93005; 99285; J8597

== ENCOUNTER → 2024-10-23 13:03 | Outpatient (BNVA) | payer MEDICARE, SELFPAY | PROVIDERS: PCP Family Medicine; Visit Provider Internal Medicine Rheumatology | DX: M19.90 Unspecified osteoarthritis, unspecified site (principal); M15.9 Polyosteoarthritis, unspecified; Z79.899 Other long term (current) drug therapy; Z71.85 Encounter for immunization safety counseling | CPT/HCPCS: 99214 ==

== ENCOUNTER 2024-11-06 09:53 | Outpatient (CLI) | payer MEDICARE, SELFPAY ==
--- NOTE | 2024-11-06 10:00 | CT_ITS ---
WS: [id number] LDCT LUNG CANCER SCREENING TECHNIQUE: Noncontrast CT of the chest with coronal and sagittal reformatted images. CLINICAL INFORMATION: F17.210 - Nicotine dependence, cigarettes, uncomplicated COMPARISON: None. DLP: 107.40 mGy.cm DIvol: Mean CTDIvol: 2.60 (mGy) All CT scans at [facility] use at least one of these dose optimization techniques: automated exposure control; mA and/or kV adjustment per patient size (includes targeted exams where dose is matched to clinical indication); or iterative reconstruction. FINDINGS: Again seen is the spiculated mass in the RIGHT upper lobe similar in appearance to previous measuring 1.4 x 1.5 cm unchanged. Associated pleural thickening. Previous PET/CT was normal in this area. Recommend continued surveillance. Noncalcified 5 mm nodule RIGHT upper lobe anteriorly is stable. Stable 4 mm noncalcified nodule LEFT upper lobe. Normal caliber thoracic aorta. Aortic calcification. Coronary calcification. No mediastinal or hilar lymphadenopathy. No axillary lymphadenopathy. Bilateral adrenal adenomas are unchanged. CT/CT lung screening [id number] IMPRESSION: LUNG-RADS: 2-Benign Appearance or Behavior FOLLOW UP: 12 Month: Continue annual screening with LDCT
== END 2024-11-06 09:54 | disposition home or self-care (01) ==
PROVIDERS: PCP Family Medicine; Visit Provider Family Medicine
DX: Z12.2 Encounter for screening for malignant neoplasm of respiratory organs (principal); F17.210 Nicotine dependence, cigarettes, uncomplicated; R91.8 Other nonspecific abnormal finding of lung field; J92.9 Pleural plaque without asbestos; I70.0 Atherosclerosis of aorta; I25.10 Atherosclerotic heart disease of native coronary artery without angina pectoris; D35.02 Benign neoplasm of left adrenal gland; D35.01 Benign neoplasm of right adrenal gland
CPT/HCPCS: 71271

== ENCOUNTER → 2024-12-06 10:28 | Outpatient (BNVA) | payer MEDICARE, SELFPAY | PROVIDERS: PCP Family Medicine; Visit Provider Internal Medicine Rheumatology | DX: Z79.899 Other long term (current) drug therapy (principal) | CPT/HCPCS: 80076; 82565; 83735; 84100; 84132; 85025; 85651; 86140 ==

== ENCOUNTER → 2024-12-25 10:01 | Outpatient (BNVA) | payer MEDICARE, MEDICAID, SELFPAY | PROVIDERS: PCP Family Medicine; Visit Provider Family Medicine | DX: E03.9 Hypothyroidism, unspecified (principal); I10 Essential (primary) hypertension; E11.42 Type 2 diabetes mellitus with diabetic polyneuropathy; Z79.4 Long term (current) use of insulin; E11.9 Type 2 diabetes mellitus without complications | CPT/HCPCS: 80048; 83036; 84443 ==

== ENCOUNTER → 2025-03-12 13:20 | Outpatient (BNVA) | payer MEDICARE, MEDICAID, SELFPAY | PROVIDERS: PCP Family Medicine; Visit Provider Internal Medicine Rheumatology | DX: M06.00 Rheumatoid arthritis without rheumatoid factor, unspecified site (principal); M15.9 Polyosteoarthritis, unspecified; Z79.899 Other long term (current) drug therapy; Z71.85 Encounter for immunization safety counseling; M76.62 Achilles tendinitis, left leg; Z86.79 Personal history of other diseases of the circulatory system | CPT/HCPCS: 20610; 36415; 80076; 85025; 86480; 99214; J1010; J9999 ==

== ENCOUNTER → 2025-05-01 15:17 | Outpatient (BNVA) | payer MEDICARE, MEDICAID, SELFPAY | PROVIDERS: PCP Family Medicine; Visit Provider Family Medicine | DX: R68.89 Other general symptoms and signs (principal); R05.9 Cough, unspecified | CPT/HCPCS: 87400; 87426 ==

== ENCOUNTER → 2025-05-28 09:17 | Outpatient (BNVA) | payer MEDICARE, MEDICAID, SELFPAY | PROVIDERS: PCP Family Medicine; Visit Provider Family Medicine | DX: I10 Essential (primary) hypertension (principal); E78.2 Mixed hyperlipidemia; E11.42 Type 2 diabetes mellitus with diabetic polyneuropathy; Z79.4 Long term (current) use of insulin; E03.9 Hypothyroidism, unspecified | CPT/HCPCS: 80053; 80061; 83036; 84439; 84443; 84481; 85025 ==